=== PATIENT | male | born 1950 | race Caucasian/White ===

== ENCOUNTER → 2016-07-26 | Outpatient (CLI) | payer OTHER ==
[~2016-07-26] MED LIST: AMOX500C3 PO; ASCO500T16 PO; ATV/1 PO; B-CO1CAP5 PO; CHOL1000 PO; CIPR-255 PO; COEN1CAP17 PO; CRS10 PO; FLUT0.15 NAE; HYDR-3714 PO; MELATAB2 PO; MISCCAP80 PO; MULT-884 PO; OMEG120017 PO; OXYC-57 PO; PHEN-775 PO; PRIM50TA29 PO; PROP1TAB PO; PROP20TA66 PO; VITBC PO
== END | disposition home or self-care (01) ==
LOC: C.PATHSPEC 19:13
PROVIDERS: ATTEND Dermatology
DX: L91.8 Other hypertrophic disorders of the skin (principal)

== ENCOUNTER → 2016-08-04 | Outpatient (CLI) | payer OTHER ==
[2016-08-04 13:05] LABS: BLOOD UREA NITROGEN 17 mg/dl (7-18); BUN/CREATININE RATIO 19.6 (10-20); CALCIUM 9.1 mg/dl (8.5-10.1); CARBON DIOXIDE 25 mmol/L (21-32); CHLORIDE 105 mmol/L (98-107); CHOLESTEROL 145 mg/dl (0-200); CREATININE 0.85 mg/dl (0.60-1.40); GLUCOSE 96 mg/dl (70-99); POTASSIUM 4.4 mmol/L (3.5-5.1); SODIUM 139 mmol/L (136-145); TRIGLYCERIDES 47 mg/dl (0-150); VERY LOW DENSITY LIPOPROT CALC 9 mg/dl
[2016-08-04 13:09] LABS: CHOLESTEROL/HDL RATIO 2.8; HDL CHOLESTEROL 52 mg/dl; LDL CHOLESTEROL CALCULATED 84 mg/dl
== END | disposition home or self-care (01) ==
LOC: C.LABPVFM 10:06
PROVIDERS: ATTEND Nurse Practitioner
DX: E78.5 Hyperlipidemia, unspecified (principal); I10 Essential (primary) hypertension

== ENCOUNTER → 2016-08-10 | Outpatient (CLI) | payer OTHER ==
--- NOTE | 2016-08-10 11:05 | DIAGNOSTIC IMAGING REPORT ---
Ultrasound, aorta ULTRASOUND EXAM AAA SCREEN CLINICAL HISTORY: E78.5 Hyperlipidemia previous smoker 1 1/2 packs a day >20 result family history TECHNIQUE: Ultrasound COMPARISON STUDY: None FINDINGS: Minimal atherosclerotic change and ectasia. No evidence for aneurysm. Proximal iliac vasculature is unremarkable. IMPRESSION: Minimal/mild atherosclerotic change and ectasia. No evidence for aneurysm. Maximum diameter of the mid abdominal aorta is 2.7 cm Electronically signed by: Virgil Mayer M.D. 08/10/2016 11:04 AM Dictated Date/Time: 08/10/2016 11:03 AM
== END | disposition home or self-care (01) ==
LOC: C.ULTR 10:40
PROVIDERS: ATTEND Nurse Practitioner
DX: E78.5 Hyperlipidemia, unspecified (principal)

== ENCOUNTER 2016-10-07 05:26 | Emergency (ER) | payer OTHER ==
[~2016-10-07] VITALS: Ht 185.4 cm; Wt 94.1 kg
[~2016-10-07 05:26] MED LIST changes: -ASCO500T16 PO; -CHOL1000 PO; -CIPR-255 PO; -COEN1CAP17 PO; -FLUT0.15 NAE; -MELATAB2 PO; -OXYC-57 PO; -PHEN-775 PO; -PRIM50TA29 PO; -PROP1TAB PO
[2016-10-07 05:31] VITALS: TEMP 36.4; Ht 185.4 cm; Wt 94.1 kg
[2016-10-07] MEDS ORDERED: KETOROLAC TROMETHAMINE 30 MG/ML VIAL IV STA (05:48)
[2016-10-07 05:59] LABS: URINE APPEARANCE CLEAR (CLEAR); URINE BILIRUBIN NEG (NEG); URINE COLOR DK YELLOW; URINE NITRITE NEG (NEG); UROBILINOGEN NEG (NEG)
[2016-10-07 06:07] LABS: BASO % 0.3 %; BASO ABS # 0.01 K/uL (0-0.2); COMPLETE YES; EOS % 3.6 %; HEMATOCRIT 46.3 % (42-52); IG% 0.3 %; LYMPH % 23.1 %; LYMPH ABS # 0.91 K/uL (1.2-3.4); MEAN CELL VOLUME 86.7 fL (80-100); MEAN CORPUSCULAR HEMOGLOBIN 29.8 pg (25-34); MEAN CORPUSCULAR HGB CONC 34.3 g/dl (32-36); MEAN PLATELET VOLUME 9.2 fL (7.4-10.4); MONO % 7.1 %; NEUT % 65.6 %; PLATELET COUNT 234 K/uL (130-400); RED BLOOD COUNT 5.34 M/uL (4.7-6.1); WHITE BLOOD COUNT 3.94 K/uL (4.8-10.8)
[2016-10-07 06:13] LABS: MANUAL MICROSCOPIC REQUIRED? NO; REVIEW REQ? NO
[2016-10-07 06:19] LABS: BUN/CREATININE RATIO 24.4 (10-20); CALCIUM 8.7 mg/dl (8.5-10.1); CREATININE 0.89 mg/dl (0.60-1.40); POTASSIUM 4.5 mmol/L (3.5-5.1)
[2016-10-07] MEDS ORDERED: PROP1TAB PO (06:27)
[2016-10-07] MEDS ORDERED: CHOL1000 PO (06:31)
[2016-10-07] MEDS ORDERED: COEN1CAP17 PO (06:32)
[2016-10-07] MEDS ORDERED: PRIM50TA29 PO (06:34)
[2016-10-07] MEDS ORDERED: FLUT0.15 NAE (06:35)
[2016-10-07] MEDS ORDERED: MELATAB2 PO (06:37)
[2016-10-07] MEDS ORDERED: ASCO500T16 PO (06:38)
--- NOTE | 2016-10-07 06:54 | EMERGENCY ROOM VISIT NOTE ---
History Report prepared by Bruce: Jakob Kebede Under the Supervision of: Dr. Karoline Salazar D.O. First contact with patient: 05:40 Chief Complaint: FLANK PAIN Stated Complaint: LEFT SIDED PAIN History of Present Illness The patient is a 65 year old male who presents to the Emergency Room with complaints of constant left sided flank pain starting yesterday afternoon. He currently rates his discomfort as a 5/10 in severity. The patient states that he was doing renovations, and he started to get the pain which he has never had before. He originally thought that it was just musculature, though the pain woke him up this morning around 0300. The patient denies any fevers, chills, urinary symptoms, and diarrhea. He states that the pain is not worsened with deep inspiration. The patient has a past medical history of hypertension and hyperlipidemia. Source of History: patient Onset: yesterday afternoon Position: other (left flank) Symptom Intensity: 5/10 Timing: constant Associated Symptoms: No fevers, No chills, No diarrhea, No urinary symptoms Review of Systems See HPI for pertinent positives & negatives. A total of 10 systems reviewed and were otherwise negative. Past Medical & Surgical Medical Problems: (1) HLD (hyperlipidemia) (2) HTN (hypertension) Family History Patient reports no known family medical history. Social History Smoking Status: Former Smoker Marital Status: Housing Status: lives with family Current/Historical Medications Scheduled Ascorbic Acid (Ascorbic Acid), 500 MG PO DAILY B-Complex W/Biotin & Folic Aci (Super B-Complex), 1 CAP PO DAILY Cholecalciferol (Vitamin D3), Unknown Dose PO DAILY Coenzyme Q10 (Ubidecarenone) (Co Q 10), Unknown Dose PO DAILY Fluticasone Propionate (Nasal) (Flonase Allergy Relief), 1 SPRAY JAVED BID Lorazepam (Ativan), 1 MG PO UD Melatonin (Melatonin Maximum Strengt), 5 MG PO HS Multiple Vitamin (Multi Vitamin Daily), 1 TAB PO DAILY [place] 3 Fatty Acids-[place] 6 Fa ([place]-3 & [place]-6 Fish Oi), 1,000 MG PO DAILY Primidone (Mysoline), 100 MG PO AMPM Probiotic Product (Probiotic), CAP PO DAILY Propranolol (Inderal), 60 MG PO BID Rosuvastatin Calcium (Crestor), 10 MG PO DAILY Scheduled PRN Oxycodone/Acetaminophen 5MG/325MG (Percocet 5MG/325MG), 2 TABLETS PO Q4H PRN for Pain Allergies Coded Allergies: No Known Allergies (Unverified , 05/27/14) Physical Exam Vital Signs Date Time Temp Pulse Resp B/P (MAP) Pulse Ox O2 Delivery O2 Flow Rate FiO2 10/07/16 07:58 65 124/63 98 10/07/16 06:32 62 18 129/70 95 Room Air 10/07/16 05:31 36.4 62 19 162/81 97 Room Air Physical Exam HEENT: Head - normocephalic and atraumatic Pupils are equal, round, and reactive to light. Extraocular eye muscles are intact, and sclera are anicteric. Nose - moist nasal mucosa without discharge. Mouth - moist buccal mucosa. Oropharynx is nonerythematous and there is no tonsillar exudate or edema noted. Neck: Supple; no JVD, nuchal rigidity, cervical lymphadenopathy. Heart: Regular rate and rhythm. There is a normal S1 and S2 with no murmurs, clicks, or gallops appreciated. Lungs: Clear to auscultation bilaterally with no wheezes, rales, or rhonchi. Abdomen: Soft, completely nontender, nondistended, with good bowel sounds. There are no palpable pulsatile masses or hepatosplenomegaly. There is no guarding, rigidity, or rebound noted. The patient has no obvious skin lesions noted over the left flank. Extremities: No evidence of cyanosis, clubbing, or edema. There are easily palpable peripheral pulses. Skin: warm and dry with good turgor and no rashes. Medical Decision & Procedures ER Provider Diagnostic Interpretation: Radiology results as stated below per my review and the radiologist's interpretation: ABDOMEN AND PELVIS CT WITHOUT CONTRAST CT DOSE: 1230.07 mGy.cm HISTORY: eval for left sided stone TECHNIQUE: Multiaxial CT images of the abdomen and pelvis were performed without the use of intravenous and oral contrast according to the standard department stone protocol. A dose lowering technique was utilized adhering to the principles of ALARA. COMPARISON STUDY: None. FINDINGS: There are 4 subcentimeter nodules within the right lung base and 2 subcentimeter nodules within the left lung base. Dominant nodule within the left lung base on image 12 measures 6 mm. No suspicious lytic or blastic osseous lesions. A few small hypodense lesions within the liver with the largest in the right hepatic lobe measuring 12 mm. These are incompletely characterized on this noncontrast study but favor cysts. The spleen, adrenal glands, pancreas, and gallbladder are unremarkable. No renal calculi. An 8 mm stone within the left ureteropelvic junction resulting in moderate left hydronephrosis and mild left perinephric edema. Ectatic abdominal aorta measures up to 2.9 cm. No retroperitoneal lymphadenopathy. Bladder decompressed but appears unremarkable. Suboptimal evaluation for bowel pathology due to the lack of intravenous and oral contrast. However, there is no definite bowel wall thickening or obstruction. Colonic diverticulosis. Normal appendix. IMPRESSION: 1. An obstructing 8 mm stone within the left ureteropelvic junction resulting in moderate left hydronephrosis. 2. A few subcentimeter indeterminate pulmonary nodules within the lung bases with the largest in the left lower lobe measuring 6 mm. Please refer to the chart below for recommended follow-up. 3. Additional findings as described above. Please refer to below summary of Fleischner criteria recommendations for follow-up of incidental CT nodules (Joellen Steward, Guidelines for management of small pulmonary nodules detected on CT scans: A statement from the Fleischner Society, Radiology 237: [phone].) SOLID NODULES Solitary nodule size: <6 mm * Low risk patients: no follow-up needed * high risk patients: optional CT at 12 months Solitary nodule size: 6-8 mm * Low risk patients: follow-up at 6-12 months, then consider further follow-up at 18-24 months * high risk patients: initial follow-up CT at 6-12 months and then at 18-24 months if no change Solitary nodule size: >8 mm * either low or high risk patients - consider follow-up CT at 3 months, and/or CT-PET, and/or biopsy Multiple nodules size: <6 mm * Low risk patients: no routine follow-up * high risk patients: optional CT at 12 months Multiple nodules size: 6-8 mm * Low risk patients: follow-up at 3-6 months, then consider further follow-up at 18-24 months * high risk patients: follow-up at 3-6 months, then at 18-24 months if no change Multiple nodules size: >8 mm * Low risk patients: follow-up at 3-6 months, then consider further follow-up at 18-24 months * high risk patients: follow-up at 3-6 months, then at 18-24 months if no change Note: newly detected indeterminate nodule in persons 35 years of age or older. * Low risk patients: minimal or absent history of smoking and/or other known risk factors * high risk patients: history of smoking or of other known risk factors (e.g. first degree relative with lung cancer, or exposure to asbestos, radon, uranium) * if a nodule up to 8 mm is partly solid or is ground glass further follow-up is required after 24 months to exclude possible slow growing adenocarcinoma (DANA) SUBSOLID NODULES Solitary pure ground-glass nodule * nodule size <6 mm - no CT follow-up required * nodule size >=6 mm - follow-up CT at 6-12 months, then every 2 years until 5 years Solitary part-solid nodule * nodule size <6 mm - no CT follow-up required * nodule size >=6 mm - follow-up CT at 3-6 months. If unchanged, and solid component remains <6 mm, then annual follow-up for 5 years Multiple subsolid nodules * nodule size <6 mm - follow-up CT at 3-6 months, consider further follow-up at 2 and 4 years if stable * nodule size >=6 mm - follow-up CT at 3-6 months, subsequent management based on the most suspicious nodule(s) Electronically signed by: Aime Mcnally M.D. 10/07/2016 7:11 AM Dictated Date/Time: 10/07/2016 7:06 AM Laboratory Results 10/07/16 05:50 Red Blood Count 5.34, Mean Corpuscular Volume 86.7, Mean Corpuscular Hemoglobin 29.8, Mean Corpuscular Hemoglobin Concent 34.3, Mean Platelet Volume 9.2, Neutrophils (%) (Auto) 65.6, Lymphocytes (%) (Auto) 23.1, Monocytes (%) (Auto) 7.1, Eosinophils (%) (Auto) 3.6, Basophils (%) (Auto) 0.3, Neutrophils # (Auto) 2.59, Lymphocytes # (Auto) 0.91, Monocytes # (Auto) 0.28, Eosinophils # (Auto) 0.14, Basophils # (Auto) 0.01 10/07/16 05:50 Test 10/07/16 05:45 10/07/16 05:50 Urine Color DK YELLOW Urine Appearance CLEAR (CLEAR) Urine pH 5.0 (4.5-7.5) Urine Specific [place] 1.030 (1.000-1.030) Urine Protein NEG (NEG) Urine Glucose (UA) NEG (NEG) Urine Ketones 1+ (NEG) Urine Occult Blood NEG (NEG) Urine Nitrite NEG (NEG) Urine Bilirubin NEG (NEG) Urine Urobilinogen NEG (NEG) Urine Leukocyte Esterase NEG (NEG) White Blood Count 3.94 K/uL (4.8-10.8) Red Blood Count 5.34 M/uL (4.7-6.1) Hemoglobin 15.9 g/dL (14.0-18.0) Hematocrit 46.3 % (42-52) Mean Corpuscular Volume 86.7 fL (80-100) Mean Corpuscular Hemoglobin 29.8 pg (25-34) Mean Corpuscular Hemoglobin Concent 34.3 g/dl (32-36) Platelet Count 234 K/uL (130-400) Mean Platelet Volume 9.2 fL (7.4-10.4) Neutrophils (%) (Auto) 65.6 % Lymphocytes (%) (Auto) 23.1 % Monocytes (%) (Auto) 7.1 % Eosinophils (%) (Auto) 3.6 % Basophils (%) (Auto) 0.3 % Neutrophils # (Auto) 2.59 K/uL (1.4-6.5) Lymphocytes # (Auto) 0.91 K/uL (1.2-3.4) Monocytes # (Auto) 0.28 K/uL (0.11-0.59) Eosinophils # (Auto) 0.14 K/uL (0-0.5) Basophils # (Auto) 0.01 K/uL (0-0.2) RDW Standard Deviation 40.7 fL (36.4-46.3) RDW Coefficient of Variation 12.8 % (11.5-14.5) Immature Granulocyte % (Auto) 0.3 % Immature Granulocyte # (Auto) 0.01 K/uL (0.00-0.02) Anion Gap 4.0 mmol/L (3-11) Est Creatinine Clear Calc Drug Dose 91.0 ml/min Estimated GFR () 102.5 Estimated GFR (Non- 88.5 BUN/Creatinine Ratio 24.4 (10-20) Calcium Level 8.7 mg/dl (8.5-10.1) Total Bilirubin 0.4 mg/dl (0.2-1) Direct Bilirubin 0.1 mg/dl (0-0.2) Aspartate Amino Transf (AST/SGOT) 26 U/L (15-37) Alanine Aminotransferase (ALT/SGPT) 35 U/L (12-78) Alkaline Phosphatase 75 U/L (45-117) Total Protein 6.5 gm/dl (6.4-8.2) Albumin 3.9 gm/dl (3.4-5.0) Laboratory results per my review. Medications Administered Medications (Trade) Dose Ordered Sig/[place] Route Start Time Stop Time Status Last Admin Dose Admin Ketorolac Tromethamine (Toradol Inj) 30 mg NOW STAT IV 10/07/16 05:48 10/07/16 05:49 DC 10/07/16 05:55 30 MG Procedure Toradol IV ED Course 0540: Past medical records reviewed. The patient was evaluated in room A2. A complete history and physical exam was performed. An IV lock was initiated and labs were drawn as above. 0548: Toradol Inj 30mg IV. The patient was able to give a urine specimen which was positive for blood. He went for CT scan of the abdomen/pelvis to rule out a stone. 0729: I reevaluated the patient, and he was very comfortable after the Toradol. 0732: I discussed the patient's case with Dr. Pruitt, Urology, and he states that if the patient is comfortable enough, then he can go home. 0735: Upon reevaluation, the patient is feeling well. I discussed findings and results with him. He verbalized agreement of the treatment plan. He was discharged home. Medical Decision The patient is a 65 year old male who presents to the ED with left flank pain. Differential diagnosis includes kidney stone, shingles, flank strain, pyelonephritis, and diverticulitis. Lab results show: Urinalysis is negative for blood, positive for 1+ ketones, BUN 22, creatinine 0.8, glucose 103, LFTs are normal, white blood count of 3.9, and stable H&H. The patient presents to the emergency department with fairly severe left flank pain. His pain was relieved with Toradol. CT scan showed evidence of a large left-sided UPJ stone. I discussed the case with urology. They will see the patient in the office for follow-up and definitive care. The patient was given a prescription for Percocet to use for pain. He was instructed to return to the emergency department for intractable pain, vomiting or fever. Otherwise, he should follow-up with urology later today to make an appointment. [place] Drug Monitoring Program Search Results: patient reviewed within database, no issues identified Medication Reconcilliation Current Medication List: was personally reviewed by me Blood Pressure Screening Patient's blood pressure: Normal blood pressure Consults Time Called: 729 Consulting Physician: Dr. Pruitt, Urology Returned Call: 07 I discussed the patient's case with Dr. Pruitt, Urology, and he states that if the patient is comfortable enough, then he can go home. Impression Primary Impression: Obstruction of left ureteropelvic junction (UPJ) due to stone Scribe Attestation The scribe's documentation has been prepared under my direction and personally reviewed by me in its entirety. I confirm that the note above accurately reflects all work, treatment, procedures, and medical decision making performed by me. Departure Information Dispostion Home / Self-Care Prescriptions Oxycodone/Acetaminophen 5MG/325MG (PERCOCET 5MG/325MG) Tab 2 TABLETS PO Q4H Y for Pain, #20 TAB Prov: Karoline Salazar D.O. 10/07/16 Referrals Traci Arthur C.R.N.P (PCP) Forms HOME CARE DOCUMENTATION FORM, IMPORTANT VISIT INFORMATION, MOTRIN USE, SPECIAL NARCOTICS INSTRUCTIONS Patient Instructions Kidney Stones Expectant Therapy, [facility] Additional Instructions Rest. Take plenty of clear liquids Percocet - 1- 2 tab. every 4 hours for pain Return to the ER for worsening pain, vomiting, or fever. Follow up with Urology today Follow up with PCP about Pulmonary nodules
--- NOTE | 2016-10-07 07:12 | DIAGNOSTIC IMAGING REPORT ---
ABDOMEN AND PELVIS CT WITHOUT CONTRAST CT DOSE: 1230.07 mGy.cm HISTORY: eval for left sided stone TECHNIQUE: Multiaxial CT images of the abdomen and pelvis were performed without the use of intravenous and oral contrast according to the standard department stone protocol. A dose lowering technique was utilized adhering to the principles of ALARA. COMPARISON STUDY: None. FINDINGS: There are 4 subcentimeter nodules within the right lung base and 2 subcentimeter nodules within the left lung base. Dominant nodule within the left lung base on image 12 measures 6 mm. No suspicious lytic or blastic osseous lesions. A few small hypodense lesions within the liver with the largest in the right hepatic lobe measuring 12 mm. These are incompletely characterized on this noncontrast study but favor cysts. The spleen, adrenal glands, pancreas, and gallbladder are unremarkable. No renal calculi. An 8 mm stone within the left ureteropelvic junction resulting in moderate left hydronephrosis and mild left perinephric edema. Ectatic abdominal aorta measures up to 2.9 cm. No retroperitoneal lymphadenopathy. Bladder decompressed but appears unremarkable. Suboptimal evaluation for bowel pathology due to the lack of intravenous and oral contrast. However, there is no definite bowel wall thickening or obstruction. Colonic diverticulosis. Normal appendix. IMPRESSION: 1. An obstructing 8 mm stone within the left ureteropelvic junction resulting in moderate left hydronephrosis. 2. A few subcentimeter indeterminate pulmonary nodules within the lung bases with the largest in the left lower lobe measuring 6 mm. Please refer to the chart below for recommended follow-up. 3. Additional findings as described above. Please refer to below summary of Fleischner criteria recommendations for follow-up of incidental CT nodules (Joellen Steward, Guidelines for management of small pulmonary nodules detected on CT scans: A statement from the Fleischner Society, Radiology 237: [phone].) SOLID NODULES Solitary nodule size: <6 mm * Low risk patients: no follow-up needed * high risk patients: optional CT at 12 months Solitary nodule size: 6-8 mm * Low risk patients: follow-up at 6-12 months, then consider further follow-up at 18-24 months * high risk patients: initial follow-up CT at 6-12 months and then at 18-24 months if no change Solitary nodule size: >8 mm * either low or high risk patients - consider follow-up CT at 3 months, and/or CT-PET, and/or biopsy Multiple nodules size: <6 mm * Low risk patients: no routine follow-up * high risk patients: optional CT at 12 months Multiple nodules size: 6-8 mm * Low risk patients: follow-up at 3-6 months, then consider further follow-up at 18-24 months * high risk patients: follow-up at 3-6 months, then at 18-24 months if no change Multiple nodules size: >8 mm * Low risk patients: follow-up at 3-6 months, then consider further follow-up at 18-24 months * high risk patients: follow-up at 3-6 months, then at 18-24 months if no change Note: newly detected indeterminate nodule in persons 35 years of age or older. * Low risk patients: minimal or absent history of smoking and/or other known risk factors * high risk patients: history of smoking or of other known risk factors (e.g. first degree relative with lung cancer, or exposure to asbestos, radon, uranium) * if a nodule up to 8 mm is partly solid or is ground glass further follow-up is required after 24 months to exclude possible slow growing adenocarcinoma (DANA) SUBSOLID NODULES Solitary pure ground-glass nodule * nodule size <6 mm - no CT follow-up required * nodule size >=6 mm - follow-up CT at 6-12 months, then every 2 years until 5 years Solitary part-solid nodule * nodule size <6 mm - no CT follow-up required * nodule size >=6 mm - follow-up CT at 3-6 months. If unchanged, and solid component remains <6 mm, then annual follow-up for 5 years Multiple subsolid nodules * nodule size <6 mm - follow-up CT at 3-6 months, consider further follow-up at 2 and 4 years if stable * nodule size >=6 mm - follow-up CT at 3-6 months, subsequent management based on the most suspicious nodule(s) Electronically signed by: Aime Mcnally M.D. 10/07/2016 7:11 AM Dictated Date/Time: 10/07/2016 7:06 AM
[2016-10-07] MEDS ORDERED: OXYC-57 PO (07:44)
[2016-10-07 07:58] VITALS: BP 124/63; PULSE 65; O2SAT 98
[2016-10-11] MEDS ORDERED: OXYC-57 PO (10:26)
[2016-10-14] MEDS ORDERED: OXYC-57 PO (10:12)
[2016-10-31] MEDS ORDERED: OXYC-57 PO (14:13)
[2016-10-31] MEDS ORDERED: CIPR-255 PO (14:13)
[2016-10-31] MEDS ORDERED: PHEN-775 PO (14:13)
== END 2016-10-07 07:59 | disposition home or self-care (01) ==
LOC: C.EDB 05:27 → C.EDA 07:59
DX: N20.1 Calculus of ureter (principal); E78.5 Hyperlipidemia, unspecified; I11.0 Hypertensive heart disease with heart failure; N20.0 Calculus of kidney; Z87.891 Personal history of nicotine dependence

== ENCOUNTER → 2016-10-07 | Outpatient (CLI) | payer OTHER ==
--- NOTE | 2016-10-07 12:14 | DIAGNOSTIC IMAGING REPORT ---
KUB CLINICAL HISTORY: Left ureteral calculus. FINDINGS: 2 AP supine abdominal radiographs are correlated with abdominal CT performed the same day 10/07/2016. A 9 mm obstructing calculus in the left proximal ureter is unchanged from earlier today. This projects at the level of L2. An additional nonobstructing calculus projects over the left renal pelvis. No right renal calculi are identified. Pelvic phleboliths are observed. There is a nonobstructed abdominal bowel gas pattern. The skeletal structures appear osteopenic. Mild lumbosacral spondylosis is identified. IMPRESSION: 1. A 9 mm obstructing calculus in the left proximal ureter is unchanged from earlier today. 2. An additional calculus projects over the left renal pelvis. Electronically signed by: Zelalem Chen M.D. 10/07/2016 12:13 PM Dictated Date/Time: 10/07/2016 12:11 PM
== END | disposition home or self-care (01) ==
LOC: C.RAD 11:09
PROVIDERS: ATTEND Nurse Practitioner Family
DX: N20.0 Calculus of kidney (principal)

== ENCOUNTER → 2016-10-07 | Outpatient (CLI) | payer OTHER | END | disposition home or self-care (01) | LOC: C.LABSPEC 14:58 | PROVIDERS: ATTEND Nurse Practitioner Family | DX: N20.0 Calculus of kidney (principal) ==

== ENCOUNTER → 2016-10-10 | Outpatient (CLI) | payer OTHER ==
[~2016-10-10] MED LIST changes: -AMOX500C3 PO; +ASCO500T16 PO; +CHOL1000 PO; +CIPR-255 PO; +COEN1CAP17 PO; +FLUT0.15 NAE; -HYDR-3714 PO; +MELATAB2 PO; +OXYC-57 PO; +PHEN-775 PO; +PRIM50TA29 PO; +PROP1TAB PO; -PROP20TA66 PO; -VITBC PO
--- NOTE | 2016-10-10 12:39 | DIAGNOSTIC IMAGING REPORT ---
CHEST 2 VIEWS ROUTINE CLINICAL HISTORY: 66 years-old Male presenting with NEPHROLITHIASIS. TECHNIQUE: PA and lateral views of the chest were obtained. COMPARISON: None. FINDINGS: Cardiomediastinal silhouette normal. Previously noted nodules at the lung base on recent CT are not radiographically apparent. Lungs and pleural spaces clear. Osseous structures normal. Upper abdomen normal. IMPRESSION: 1. No acute cardiopulmonary disease. Electronically signed by: Latrell Rincon M.D. 10/10/2016 12:38 PM Dictated Date/Time: 10/10/2016 12:37 PM
== END | disposition home or self-care (01) ==
LOC: C.CPL 12:05
PROVIDERS: ATTEND Nurse Practitioner Family
DX: N20.0 Calculus of kidney (principal)

== ENCOUNTER → 2016-10-13 | Outpatient (CLI) | payer OTHER ==
[~2016-10-13] MED LIST changes: -CHOL1000 PO; -FLUT0.15 NAE
--- NOTE | 2016-10-13 16:24 | DIAGNOSTIC IMAGING REPORT ---
KUB HISTORY: NEPHROLITHIASIS COMPARISON: KUB 10/07/2016, CT abdomen and pelvis 10/07/2016. FINDINGS: The bowel gas pattern is non-obstructive. There is no organomegaly. The previously noted obstructing 9 mm calculus of the left ureterovesicular junction has slightly migrated approximately 1 cm caudally now just inferior to the left transverse process L2. Additional 3 mm left renal calculus is again seen. Vascular calcifications of the pelvis appear unchanged. No pneumoperitoneum or pneumatosis. No fracture. Moderate degenerative changes of the pelvis are noted. IMPRESSION: 1. There has only been minimal migration of the left ureterovesicular junction 9 mm stone from comparison. 2. Additional left-sided nephrolithiasis redemonstrated. Electronically signed by: Jaun Britt M.D. 10/13/2016 4:22 PM Dictated Date/Time: 10/13/2016 4:15 PM
== END | disposition home or self-care (01) ==
LOC: C.RAD 15:58
PROVIDERS: ATTEND Nurse Practitioner Family
DX: N20.0 Calculus of kidney (principal)

== ENCOUNTER → 2016-10-14 | Day surgery (SDC) | payer OTHER ==
[2016-10-11 10:33] VITALS: Ht 184.2 cm; Wt 90.9 kg
--- NOTE | 2016-10-12 10:03 | PAT Medication Instructions ---
Service Date Oct 12, 2016. Current Home Medication List Ascorbic Acid (Ascorbic Acid), 500 MG PO DAILY B-Complex W/Biotin & Folic Aci (Super B-Complex), 1 CAP PO DAILY Coenzyme Q10 (Ubidecarenone) (Co Q 10), Unknown Dose PO DAILY Lorazepam (Ativan), 1 MG PO UD Melatonin (Melatonin Maximum Strengt), 5 MG PO HS Multiple Vitamin (Multi Vitamin Daily), 1 TAB PO DAILY [place] 3 Fatty Acids-[place] 6 Fa ([place]-3 & [place]-6 Fish Oi), 1,000 MG PO DAILY Oxycodone/Acetaminophen 5MG/325MG (Percocet 5MG/325MG), 1-2 TABLETS PO Q4H PRN for Pain Primidone (Mysoline), 2 TABS PO BID Probiotic Product (Probiotic), 1 CAP PO DAILY Propranolol (Inderal), 60 MG PO BID Rosuvastatin Calcium (Crestor), 10 MG PO QPM Medication Instructions For Your Scheduled Surgery - Hold the following medications starting 10/13/16: Coenzyme Q10 (Ubidecarenone) (Co Q 10), Unknown Dose PO DAILY [place] 3 Fatty Acids-[place] 6 Fa ([place]-3 & [place]-6 Fish Oi), 1,000 MG PO DAILY - Hold the following medications the morning of surgery: Ascorbic Acid (Ascorbic Acid), 500 MG PO DAILY B-Complex W/Biotin & Folic Aci (Super B-Complex), 1 CAP PO DAILY Multiple Vitamin (Multi Vitamin Daily), 1 TAB PO DAILY - Take the following medications the morning of surgery with a sip of water: Probiotic Product (Probiotic), 1 CAP PO DAILY Oxycodone/Acetaminophen 5MG/325MG (Percocet 5MG/325MG), 1-2 TABLETS PO Q4H PRN for Pain (okay to take up to 4 hours prior to surgery if needed) Primidone (Mysoline), 2 TABS PO BID - Take the following medications as scheduled the night before surgery: Propranolol (Inderal), 60 MG PO BID Rosuvastatin Calcium (Crestor), 10 MG PO QPM Oxycodone/Acetaminophen 5MG/325MG (Percocet 5MG/325MG), 1-2 TABLETS PO Q4H PRN for Pain (if needed) Lorazepam (Ativan), 1 MG PO UD. Primidone (Mysoline), 2 TABS PO BID Melatonin (Melatonin Maximum Strengt), 5 MG PO HS If you have any questions please call us at [phone] or [phone] or [phone]
[~2016-10-14] VITALS: Ht 184.2 cm; Wt 90.9 kg
[~2016-10-14] MED LIST changes: +CIPROFLOXACIN 400MG / 200ML D5W ONE; +CIPROFLOXACIN 400MG / D5W IV SCH; +DEXAMETHASONE SOD INJ 4 MG/ML VIAL ONE; +FENTANYL CITRATE INJ 50 MCG/1 ML 2 ML VIAL ONE; +LACTATED RINGER'S 1000ML 1,000 ML IV SCH; +LIDOCAINE HCL 2% 2 ML VIAL (20MG/ML) ONE; +MIDAZOLAM HCL 1 MG/ML 2ML VIAL ONE; +ONDANSETRON INJ 2 MG/ML 2 ML VIAL ONE; +OXYCODONE/ACETAMINOPHEN 5-325 TAB ONE; +OXYCODONE/ACETAMINOPHEN 5-325 TAB PO PRN; +PROPOFOL IV EMULSION 10 MG/ML 20 ML VIAL IV ONE; +SCOPOLAMINE 1.5 MG TDSY TD ONE
--- NOTE | 2016-10-14 09:36 | History & Physical Bridge Note ---
H&P Re-Evaluation Bridge Note: I have examined the patient, reviewed the History & Physical and in the interval since the performance of the History & Physical I have noted the following changes of clinical significance: No changes noted
--- NOTE | 2016-10-14 10:11 | [facility] Operative Report ---
Operative Report Operative Date Oct 14, 2016. Pre-Operative Diagnosis LEFT URETERAL STONE Post-Operative Diagnosis NONE Procedure(s) Performed LEFT ESWL Surgeon HUSSAIN Human Services Program Specialist Surgeon(s) NONE Estimated Blood Loss NONE Findings LEFT UPJ STONE Specimens NONE Drains NONE Anesthesia GENERAL Complication(s) None Disposition Recovery Room / PACU Indications LEFT UPJ STONE Description of Procedure Patient was identified in the preoperative holding area, appropriate informed consent was reviewed and completed and the patient was transported to the operating suite. Upon arrival appropriate preoperative antibiotics were administered and general anesthesia induced. The patient was placed in supine position and the stone was localized under fluoroscopy. A total of [_2500__] shocks were delivered to the stone. There appeared to be good fragmentation of the stone. Details of this procedure can be found on the [facility] information sheet. At the conclusion of the case the patient was extubated and taken to the PACU in stable condition. There were no complications. I attest to the content of the Intraoperative Record and any orders documented therein. Any exceptions are noted below.
--- NOTE | 2016-10-14 10:13 | Discharge Instructions-SurgCtr ---
Discharge Instructions Date of Service Oct 14, 2016. Visit Reason for Visit: Stones Discharge Discharge Diagnosis / Problem: STONE Discharge Goals Goal(s): Therapeutic intervention Medications Stopped Medications Name(s): FISH OIL STOPPED LAST DOSE 2 DAYS AGO. Activity Recommendations Activity Limitations: resume your previous activity (TAKE IT EASY TODAY) Anesthesia . Post Anesthesia Instructions: If you have had General Anesthesia or IV Sedation: * Do not drive today. * Resume driving when surgeon permits. * Do not make important decisions or sign legal documents today. * Call surgeon for: 1. Temperature elevations greater than 101 degrees F. 2. Uncontrollable pain. 3. Excessive bleeding. 4. Persistent nausea and vomiting. 5. Medication intolerance (nausea, vomiting or rash). * For nausea and vomiting use only clear liquids such as: tea, soda, bouillon until nausea subsides, then gradually increase diet as tolerated. * If you have any concerns or questions, call your surgeon's office. If physician is unavailable and it is an emergency, call 911 or go to the nearest emergency room. . Instructions / Follow-Up Instructions / Follow-Up MEDICATIONS: Resume previous medications unless instructed otherwise by your surgeon. Resume pre-ESWL medication except for aspirin, coumadin or other blood thinners. __ Toradol 10 mg every 6 hours for initial pain. __ Lortab 5 mg 1-2 every 4 hours for pain. _X_ Percocet 5 mg 1-2 every 4 hours for pain. __ Macrodantin 50 mg x 3 a day. __ Flomax 1 tab daily one half (1/2) hour after supper. SPECIAL CARE INSTRUCTIONS: 1. Get KUB (x-ray) _X_ day before or day of office visit and bring x-ray to office __ get x-ray 2 days before and tell office you are getting x-rays when you call for the appointment. 2. Strain ALL urine. 3. Please call if you have a fever, chills, severe pain, or constant dribbling of urine. 4. Office phone number . FOLLOW UP VISIT: Please call the office to schedule a follow-up appointment at . Diet Recommendations Home Diet: resume previous diet Procedures Procedures Performed: LEFT ESWL Pending Studies Studies pending at discharge: no Medical Emergencies . Who to Call and When: Medical Emergencies: If at any time you feel your situation is an emergency, please call 911 immediately. . Non-Emergent Contact Non-Emergency issues call your: Urologist Call Non-Emergent contact if: temperature is above 101.5, your pain is not controlled . . "Provider Documentation" section prepared by Tyree Naranjo. . [place] Drug Monitoring Program Search Results: patient reviewed within database
--- NOTE | 2016-10-14 10:59 | Anesthesia Progress Nt - [facility] ---
Anesthesia Post Op Note Date & Time Oct 14, 2016 at 10:59 Vital Signs Pain Intensity: 0 Vital Signs Past 12 Hours Date Time Temp Pulse Resp B/P (MAP) Pulse Ox O2 Delivery O2 Flow Rate FiO2 10/14/16 10:41 36.3 54 12 141/75 98 Mask 6 10/14/16 08:41 36.5 61 20 143/83 (103) 98 Room Air Notes Mental Status: alert / awake / arousable, participated in evaluation Pt Amnestic to Procedure: Yes Nausea / Vomiting: adequately controlled Pain: adequately controlled Airway Patency, RR, SpO2: stable & adequate BP & HR: stable & adequate Hydration State: stable & adequate Anesthetic Complications: no major complications apparent
[2016-10-14 11:15] VITALS: TEMP 36.5
[2016-10-14 11:32] VITALS: BP 136/83; PULSE 51; O2SAT 99
== END | disposition home or self-care (01) ==
LOC: X.SURG 10-12 09:17
PROVIDERS: ATTEND Urology
DX: N20.0 Calculus of kidney (principal); N20.1 Calculus of ureter; N52.9 Male erectile dysfunction, unspecified; E78.5 Hyperlipidemia, unspecified; I10 Essential (primary) hypertension; Z85.820 Personal history of malignant melanoma of skin; Z79.899 Other long term (current) drug therapy; Z85.828 Personal history of other malignant neoplasm of skin

== ENCOUNTER → 2016-10-25 | Outpatient (CLI) | payer OTHER ==
[~2016-10-25] MED LIST changes: -CIPROFLOXACIN 400MG / 200ML D5W ONE; -CIPROFLOXACIN 400MG / D5W IV SCH; -DEXAMETHASONE SOD INJ 4 MG/ML VIAL ONE; -FENTANYL CITRATE INJ 50 MCG/1 ML 2 ML VIAL ONE; -LACTATED RINGER'S 1000ML 1,000 ML IV SCH; -LIDOCAINE HCL 2% 2 ML VIAL (20MG/ML) ONE; -MIDAZOLAM HCL 1 MG/ML 2ML VIAL ONE; -ONDANSETRON INJ 2 MG/ML 2 ML VIAL ONE; -OXYCODONE/ACETAMINOPHEN 5-325 TAB ONE; -OXYCODONE/ACETAMINOPHEN 5-325 TAB PO PRN; -PROPOFOL IV EMULSION 10 MG/ML 20 ML VIAL IV ONE; -SCOPOLAMINE 1.5 MG TDSY TD ONE
--- NOTE | 2016-10-25 10:02 | DIAGNOSTIC IMAGING REPORT ---
KUB CLINICAL HISTORY: N20.0 [id number] COMPARISON STUDY: 10/13/2016 FINDINGS: There is no pathologic bowel dilatation. There is a persistent 9 mm calculus at the level of the left ureteral pelvic junction. There is additional 3 mm left renal calculus. A calcification projected immediately medial to the right kidney was demonstrated to represent a vascular calcification on a prior CT scan. Multiple pelvic basin calcifications are likely vascular. IMPRESSION: 1. No change the position of the 9 mm proximal left ureteral calculus 2. There is an additional 3 mm left renal calculus 3. No evidence of pathologic bowel dilatation Electronically signed by: Franco Roy M.D. 10/25/2016 10:01 AM Dictated Date/Time: 10/25/2016 9:59 AM
== END | disposition home or self-care (01) ==
LOC: C.RAD 09:29
PROVIDERS: ATTEND Nurse Practitioner Family
DX: N20.0 Calculus of kidney (principal); N20.1 Calculus of ureter

== ENCOUNTER 2016-10-31 09:48 | Day surgery (SDC) | payer OTHER ==
[2016-10-27 10:44] VITALS: BMI 26.0
[~2016-10-31] VITALS: Ht 185.4 cm; Wt 90.9 kg
[~2016-10-31 09:48] MED LIST changes: +ATROPINE SULFATE 0.1 MG/ML 5ML SYR IV PRN; -CIPR-255 PO; +CIPROFLOXACIN / D5W 400 MG IV SCH; +EpHEDrine SULFATE INJ 50 MG/ML AMP IV PRN; +FENTANYL CITRATE INJ 50 MCG/1 ML 2 ML VIAL IV PRN; +LACTATED RINGER'S 1000ML 1,000 ML IV SCH; +ONDANSETRON INJ 2 MG/ML 2 ML VIAL IV PRN; -PHEN-775 PO
[2016-10-31 11:02] VITALS: BP 136/55; PULSE 58; TEMP 36.5; O2SAT 99; Ht 185.4 cm; Wt 90.9 kg
[2016-10-31] MEDS ORDERED: MIDAZOLAM HCL 1 MG/ML 2ML VIAL ONE (12:11)
[2016-10-31] MEDS ORDERED: ONDANSETRON INJ 2 MG/ML 2 ML VIAL ONE (12:11)
[2016-10-31] MEDS ORDERED: FENTANYL CITRATE INJ 50 MCG/1 ML 2 ML VIAL ONE (12:11)
[2016-10-31] MEDS ORDERED: LIDOCAINE HCL 2% 2 ML VIAL (20MG/ML) ONE (12:11)
[2016-10-31] MEDS ORDERED: DEXAMETHASONE SOD INJ 4 MG/ML VIAL ONE (12:11)
[2016-10-31] MEDS ORDERED: PROPOFOL IV EMULSION 10 MG/ML 20 ML VIAL IV ONE (12:11)
[2016-10-31] MEDS ORDERED: CONRAY 30% 150ML BOTTLE ONE (12:57)
[2016-10-31] MEDS ORDERED: OXYC-57 PO (14:13)
[2016-10-31] MEDS ORDERED: PHEN-775 PO (14:13)
[2016-10-31] MEDS ORDERED: CIPR-255 PO (14:13)
[2016-10-31] MEDS ORDERED: SODIUM CHLORIDE 0.9% 1000ML 1,000 ML IV SCH (14:17)
[2016-10-31] MEDS ORDERED: KETOROLAC TROMETHAMINE 15 MG/ML VIAL IV. STA (14:17)
--- NOTE | 2016-10-31 14:17 | Discharge Instructions ---
Discharge Instructions Date of Service Oct 31, 2016. Admission Reason for Admission: Stones Discharge Discharge Diagnosis / Problem: stones Discharge Goals Goal(s): Decrease discomfort, Improve function, Increase independence, Improve disease control, Prevent Disease Progression Activity Recommendations Activity Limitations: resume your previous activity Lifting Limitations: none Exercise/Sports Limitations: none May Resume Sexual Activity: when tolerated Shower/Bathe: no limitations Driving or Machine Use: resume 1 day after discharge . Instructions / Follow-Up Instructions / Follow-Up Please keep your previously scheduled follow up appointment. Discharge Diet Recommended Diet: Regular Diet Procedures Procedures Performed: Cystoscopy, Left Ureteroscopy, Laser Lithotripsy; Stent, Ureteral Dilation Pending Studies Studies pending at discharge: no Laboratory Results Lipid Panel Test 08/04/16 10:10 Range/Units Triglycerides Level 47 0-150 mg/dl Cholesterol Level 145 0-200 mg/dl HDL Cholesterol 52 mg/dl Cholesterol/HDL Ratio 2.8 LDL Cholesterol, Calculated 84 mg/dl Medical Emergencies . Who to Call and When: Medical Emergencies: If at any time you feel your situation is an emergency, please call 911 immediately. . Non-Emergent Contact Non-Emergency issues call your: Urologist Call Non-Emergent contact if: you have a fever, temperature is above 101.5, your pain is not controlled, your pain is worsening . . "Provider Documentation" section prepared by Juanito Gongora. . VTE Core Measure Inpt VTE Proph given/why not?: Treatment not indicated [place] Drug Monitoring Program Search Results: patient reviewed within database Drug Monitoring Findings: numerous rx's in the past several months
--- NOTE | 2016-10-31 14:29 | Anesthesiology Progress Note ---
Anesthesia Post Op Note Date & Time Oct 31, 2016 at 14:29 Vital Signs Pain Intensity: 0 Vital Signs Past 12 Hours Date Time Temp Pulse Resp B/P (MAP) Pulse Ox O2 Delivery O2 Flow Rate FiO2 10/31/16 14:25 76 16 158/81 98 Oxymask 10 10/31/16 14:15 36.3 75 16 146/80 99 Oxymask 10 10/31/16 11:02 36.5 58 16 136/55 (82) 99 Room Air Notes Mental Status: alert / awake / arousable, participated in evaluation Pt Amnestic to Procedure: Yes Nausea / Vomiting: adequately controlled Pain: adequately controlled Airway Patency, RR, SpO2: stable & adequate BP & HR: stable & adequate Hydration State: stable & adequate Anesthetic Complications: no major complications apparent
[2016-10-31] MEDS ORDERED: TAMSULOSIN HCL 0.4 MG CAP PO ONE (14:30)
[2016-10-31] MEDS ORDERED: OXYCODONE/ACETAMINOPHEN 5-325 TAB PO PRN ×2 (14:30)
--- NOTE | 2016-10-31 14:46 | [facility] Operative Report ---
Operative Report Operative Date Oct 31, 2016. Pre-Operative Diagnosis Left Ureteral and Renal Stones Post-Operative Diagnosis Left Ureteral and Renal Stones Procedure(s) Performed Cystoscopy, Left Ureteroscopy, Laser Lithotripsy; ([id number]) Stent, Ureteral Dilation Surgeon Dr. 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 General anesthesia was induced and ciprofloxacin administered. The patient was placed in dorsal lithotomy position where he was sterilely prepped and draped. I began the case by passing a 22 Mauritian cystoscope with 30 lens. He has no evidence of stricture disease. His prostate is relatively small in size was moderately high bladder neck. Full inspection of the bladder was carried out. No evidence of tumors or other abnormalities the bladder mucosa. Left ureteral orifice was easily identified in orthotopic position and was cannulated with a sensor wire and a 10 Mauritian double-lumen catheter. The wire was advanced to the kidney without difficulty followed by placement of a second wire through the 10 Mauritian double-lumen catheter. I left the 10 [place] double-lumen catheter to passively dilate the ureter for approximately 60 seconds. After withdrawing the 10 Mauritian double-lumen catheter, I passed a flexible ureteroscope over 1 wire while reserving the other as a safety wire. Renoscopy was then carried out, identifying no stones within the limited portion of the kidney. Fluoroscopic evaluation with the scope in the kidney confirmed that I was in the upper pole with the scope and then opacity clearly matching the stone previously seen on KUB was clearly visible within the lower pole. After confirming a clear upper pole, I performed a very careful exit ureteroscopy in approximately 6 cm below the UPJ I encountered a takeoff to the lower pole. I guided a wire into this as I was unable to drive the scope and without a wire. I attempted to pass the scope over the wire, but this failed. I withdrew the scope entirely and passed a balloon dilator over the wire. After positioning the balloon dilator over this area of narrowing, I inflated to 12 mmHg and allowed to rest in position for 120 seconds. Withdrew the balloon dilator and repassed the flexible ureteroscope into the lower pole without difficulty. Full inspection revealed numerous calyces with a large calculus seen. A 200 fiber was passed and laser lithotripsy commenced. Don't was treated its entirety in the pieces all teams safe for spontaneous passage. I then performed a repeat exit ureteroscopy confirming no stones within the lower pole or within the common ureter. After confirming the position of the lower pole wire, I placed a 6 Mauritian by 26cm double-J ureteral stent seeing a good curl in the kidney as well as the bladder. The bladder was decompressed, and the case concluded. The patient was extubated and taken to the PACU in stable condition. I attest to the content of the Intraoperative Record and any orders documented therein. Any exceptions are noted below.
[2016-10-31 14:55] VITALS: BP 158/78; PULSE 71; TEMP 36.6; O2SAT 97
[2016-10-31 15:25] VITALS: BP 161/78; PULSE 62; O2SAT 98
[2016-10-31 15:59] VITALS: BP 157/76; PULSE 62; O2SAT 99
== END 2016-10-31 16:35 | disposition home or self-care (01) ==
LOC: C.ACU 09:48
PROVIDERS: ATTEND Urology
DX: N20.2 Calculus of kidney with calculus of ureter (principal); G25.0 Essential tremor; N52.9 Male erectile dysfunction, unspecified; E78.5 Hyperlipidemia, unspecified; I10 Essential (primary) hypertension; G47.00 Insomnia, unspecified; Z79.899 Other long term (current) drug therapy

== ENCOUNTER → 2016-11-07 | Outpatient (CLI) | payer OTHER ==
[~2016-11-07] MED LIST changes: -ATROPINE SULFATE 0.1 MG/ML 5ML SYR IV PRN; +CIPR-255 PO; -CIPROFLOXACIN / D5W 400 MG IV SCH; -EpHEDrine SULFATE INJ 50 MG/ML AMP IV PRN; -FENTANYL CITRATE INJ 50 MCG/1 ML 2 ML VIAL IV PRN; -LACTATED RINGER'S 1000ML 1,000 ML IV SCH; -ONDANSETRON INJ 2 MG/ML 2 ML VIAL IV PRN; +PHEN-775 PO
--- NOTE | 2016-11-07 11:06 | DIAGNOSTIC IMAGING REPORT ---
KUB HISTORY: Nephrolithiasis. COMPARISON: KUB 10/25/2016. FINDINGS: The bowel gas pattern is unremarkable. There are no dilated loops of small bowel to suggest an obstruction. Interval placement of a left ureteral stent which appears be in good position. The dominant stone within the left ureteropelvic junction has been fragmented. Multiple small fragments are seen within the lower pole of the left kidney and a few punctate fragments remain at the left ureteropelvic junction. Stable pelvic calcifications which are consistent with phleboliths. The 3 mm calcification adjacent to the proximal stent was demonstrated to be a vascular calcification on the prior study. No definite right renal calculi identified. IMPRESSION: 1. The dominant stone within the left ureteropelvic junction seen on the prior study has been fragmented with multiple punctate stone fragments located within the lower pole of the left kidney and at the ureteropelvic junction. 2. The left ureteral stent is in good position. Electronically signed by: Aime Mcnally M.D. 11/07/2016 11:05 AM Dictated Date/Time: 11/07/2016 11:02 AM
== END | disposition home or self-care (01) ==
LOC: C.RAD 10:36
PROVIDERS: ATTEND Nurse Practitioner Family
DX: N20.0 Calculus of kidney (principal)

== ENCOUNTER → 2017-02-23 | Outpatient (CLI) | payer OTHER ==
[~2017-02-23] MED LIST changes: -PHEN-775 PO
== END | disposition home or self-care (01) ==
LOC: C.PATHSPEC 11:17
PROVIDERS: ATTEND Plastic Surgery
DX: L90.5 Scar conditions and fibrosis of skin (principal); D22.4 Melanocytic nevi of scalp and neck

== ENCOUNTER → 2017-02-24 | Outpatient (CLI) | payer OTHER ==
--- NOTE | 2017-02-24 12:31 | DIAGNOSTIC IMAGING REPORT ---
CT SCAN OF THE CHEST WITHOUT IV CONTRAST CLINICAL HISTORY: Pulmonary nodule follow-up. COMPARISON STUDY: Chest x-ray dated 10/10/2016. Abdominal CT dated 10/07/2016. TECHNIQUE: CT scan of the thorax was performed from the thoracic inlet to the upper abdomen. Images are reviewed in the axial, sagittal, and coronal planes. IV contrast was not administered for this examination as per the referring clinician. A dose lowering technique was utilized adhering to the principles of ALARA. CT DOSE: 456.54 mGy.cm FINDINGS: Thyroid: Imaged portions of the thyroid gland are normal in size and attenuation. Thoracic aorta: There is atherosclerotic calcification of the thoracic aorta, which is normal in caliber and demonstrates standard 3-vessel arch anatomy. Heart: The heart is top normal in size and without pericardial effusion. The coronary arteries are densely calcified. Lungs and pleural spaces: Mild emphysematous change is identified. There is no airspace consolidation or pleural effusion. The trachea and central airways are clear. There are scattered (less than 10) pulmonary nodules seen in the lower lungs. The largest nodules measure up to 7 mm seen in the right lower lobe on image #207 and in the left lower lobe on image #198. Additional nodules are seen in the right lower lobe on image #204, in the right middle lobe on image #175, in the lingula on image #160, and in the left lower lobe on images #159 and #199. Mediastinum: There is no mediastinal lymphadenopathy. 1.3 cm around water attenuation structure in the superior mediastinum on image #42 is of doubtful significance. Nina: Not well assessed without IV contrast. Axillae: There is no axillary lymphadenopathy. Upper abdomen: There is a tiny hiatal hernia. A 12 mm cyst is again seen in the right lobe liver. Additional subcentimeter hepatic hypodensities also likely represent cysts but are too small for definitive characterization. Skeletal structures: The skeletal structures are osteopenic. No lytic or blastic bony lesions are seen. IMPRESSION: 1. Emphysema. 2. There is no airspace consolidation or pleural effusion. 3. There are scattered (less than 10) pulmonary nodules measuring up to 7 mm above. These are pathologically indeterminant and continued follow-up as per the Fleischner criteria is recommended. The lower lobe nodules have not significantly changed from the 10/07/2016 examination. 4. Additional findings as above. Please refer to below summary of Fleischner criteria recommendations for follow-up of incidental CT nodules (Joellen Steward, Guidelines for management of small pulmonary nodules detected on CT scans: A statement from the Fleischner Society, Radiology 237: [phone].) SOLID NODULES Solitary nodule size: <6 mm * low risk patients: no follow-up needed * high risk patients: optional CT at 12 months Solitary nodule size: 6-8 mm * low risk patients: follow-up at 6-12 months, then consider further follow-up at 18-24 months * high risk patients: initial follow-up CT at 6-12 months and then at 18-24 months if no change Solitary nodule size: >8 mm * either low or high risk patients - consider follow-up CT at 3 months, and/or CT-PET, and/or biopsy Multiple nodules size: <6 mm * low risk patients: no routine follow-up * high risk patients: optional CT at 12 months Multiple nodules size: 6-8 mm * low risk patients: follow-up at 3-6 months, then consider further follow-up at 18-24 months * high risk patients: follow-up at 3-6 months, then at 18-24 months if no change Multiple nodules size: >8 mm * low risk patients: follow-up at 3-6 months, then consider further follow-up at 18-24 months * high risk patients: follow-up at 3-6 months, then at 18-24 months if no change Note: newly detected indeterminate nodule in persons 35 years of age or older. * low risk patients: minimal or absent history of smoking and/or other known risk factors * high risk patients: history of smoking or of other known risk factors (e.g. first degree relative with lung cancer, or exposure to asbestos, radon, uranium) * if a nodule up to 8 mm is partly solid or is ground glass further follow-up is required after 24 months to exclude possible slow growing adenocarcinoma (DANA) SUBSOLID NODULES Solitary pure ground-glass nodule * nodule size <6 mm - no CT follow-up required * nodule size >=6 mm - follow-up CT at 6-12 months, then every 2 years until 5 years Solitary part-solid nodule * nodule size <6 mm - no CT follow-up required * nodule size >=6 mm - follow-up CT at 3-6 months. If unchanged, and solid component remains <6 mm, then annual follow-up for 5 years Multiple subsolid nodules * nodule size <6 mm - follow-up CT at 3-6 months, consider further follow-up at 2 and 4 years if stable * nodule size >=6 mm - follow-up CT at 3-6 months, subsequent management based on the most suspicious nodule(s) Electronically signed by: Zelalem Chen M.D. 02/24/2017 12:30 PM Dictated Date/Time: 02/24/2017 12:22 PM
== END | disposition home or self-care (01) ==
LOC: C.CTS 12:05
PROVIDERS: ATTEND Nurse Practitioner
DX: R91.1 Solitary pulmonary nodule (principal); J43.9 Emphysema, unspecified

== ENCOUNTER → 2017-04-25 | Day surgery (SDC) | payer OTHER ==
[2017-04-10 08:22] VITALS: Ht 184.2 cm; Wt 93.2 kg
[~2017-04-25] VITALS: Ht 184.2 cm; Wt 93.2 kg
[~2017-04-25] MED LIST changes: +CHOL1000 PO; -CIPR-255 PO; +LIDOCAINE HCL 2% 2 ML VIAL (20MG/ML) ONE; -OXYC-57 PO; +PROPOFOL IV EMULSION 10 MG/ML 20 ML VIAL IV ONE; +SODIUM CHLORIDE 0.9% 500ML 500 ML IV ONE
--- NOTE | 2017-04-25 09:44 | Endo History and Physical ---
History & Physical Date of Service: Apr 25, 2017. Chief Complaint: History of colon polyps Referring Physician: Traci Arthur History of Present Illness 66 yo CM who presents for colonoscopy secondary to history of colon polyps. Past Medical History Cancer, High Cholesterol, Hypertension Past Surgical History Hx Cardiac Surgery: No Hx Internal Defibrillator: No Hx Pacemaker: No Hx Abdominal Surgery: No Hx of Implantable Prosthesis: No Hx Post-Op Nausea and Vomiting: Yes Hx Cancer Surgery: Yes (IN-SITU MELANOMA AND BCC EXCISION) Hx Thoracic Surgery: No Hx Orthopedic: Yes (RT SHOULDER) Hx Urinary Tract Surgery: Yes (LITHOTRIPSY, LASER LITHO) Family History None Social History Smoking Status: Former Smoker Hx Substance Use: No Hx Alcohol Use: Yes (OCCASIONAL) Allergies Coded Allergies: No Known Allergies (Unverified , 04/10/17) Current Medications Reported Home Medications Medications Dose Route/Sig Max Daily Dose Days Date Category Dose Instructions Vitamin D3 (Cholecalciferol) 1,000 Unit Tab 1 Tab PO DAILY 04/10/17 Reported Ascorbic Acid 500 Mg Tab 500 Mg PO DAILY 10/07/16 Reported Melatonin Maximum Strengt (Melatonin) 5 Mg Tab 5 Mg PO HS 10/07/16 Reported Mysoline (Primidone) 50 Mg Tab 3 Tabs PO BID 10/07/16 Reported Co Q 10 (Coenzyme Q10 (Ubidecarenone)) Unknown Strength Cap Unknown Dose PO BID 10/07/16 Reported Inderal (Propranolol HCl) 60 Mg Tab 60 Mg PO BID 10/07/16 Reported Super B-Complex (B-Complex W/Biotin & Folic Aci) 1 Cap Cap 1 Cap PO DAILY 05/26/14 Reported Probiotic (Probiotic Product) 1 Cap Cap 1 Cap PO DAILY 05/26/14 Reported Elsberry-3 & Elsberry-6 Fish Oi ([place]lsberry 3 Fatty Acids-Elsberry 6 Fa) 1 Cap Cap 1,000 Mg PO DAILY 05/26/14 Reported Multi Vitamin Daily (Multiple Vitamin) 1 Tab Tab 1 Tab PO DAILY 05/26/14 Reported Ativan (Lorazepam) 1 Mg Tab 1 Mg PO UD 05/26/14 Reported TAKE 0.5 MG NEEDED AT BEDTIME Crestor (Rosuvastatin Calcium) 10 Mg Tab 10 Mg PO QPM 05/26/14 Reported Vital Signs Weight (Kilograms): 93.18 Height (Feet): 6 Height (Inches): 0.5 Physical Exam General Appearance: WD/WN, no apparent distress Respiratory/Chest: Auscultation: breath sounds normal Cardiovascular: Heart Auscultation: RRR Abdomen: Bowel Sounds: normal Inspection & Palpation: soft, non-distended, no tenderness, guarding & rebound Assessment and Plan Assessment: 66 yo CM who presents for colonoscopy secondary to history of colon polyps. Plan: Proceed with colonoscopy.
--- NOTE | 2017-04-25 10:46 | Discharge Instructions ---
Endoscopy Patient Instructions Date / Procedure(s) Performed Apr 25, 2017. Colonoscopy Allergy Information Coded Allergies: No Known Allergies (Unverified , 04/25/17) Discharge Date / Findings Apr 25, 2017. Colon polyp Internal hemorrhoids Medication Instructions OK to resume all medications today as prescribed Reported Home Medications Medications Dose Route/Sig Max Daily Dose Days Date Category Dose Instructions Vitamin D3 (Cholecalciferol) 1,000 Unit Tab 1 Tab PO DAILY 04/10/17 Reported Ascorbic Acid 500 Mg Tab 500 Mg PO DAILY 10/07/16 Reported Melatonin Maximum Strengt (Melatonin) 5 Mg Tab 5 Mg PO HS 10/07/16 Reported Mysoline (Primidone) 50 Mg Tab 3 Tabs PO BID 10/07/16 Reported Co Q 10 (Coenzyme Q10 (Ubidecarenone)) Unknown Strength Cap Unknown Dose PO BID 10/07/16 Reported Inderal (Propranolol HCl) 60 Mg Tab 60 Mg PO BID 10/07/16 Reported Super B-Complex (B-Complex W/Biotin & Folic Aci) 1 Cap Cap 1 Cap PO DAILY 05/26/14 Reported Probiotic (Probiotic Product) 1 Cap Cap 1 Cap PO DAILY 05/26/14 Reported [place]-3 & [place]-6 Fish Oi ([place] 3 Fatty Acids-[place] 6 Fa) 1 Cap Cap 1,000 Mg PO DAILY 05/26/14 Reported Multi Vitamin Daily (Multiple Vitamin) 1 Tab Tab 1 Tab PO DAILY 05/26/14 Reported Ativan (Lorazepam) 1 Mg Tab 1 Mg PO UD 05/26/14 Reported TAKE 0.5 MG NEEDED AT BEDTIME Crestor (Rosuvastatin Calcium) 10 Mg Tab 10 Mg PO QPM 05/26/14 Reported Provider Instructions Activity Restrictions - No exercising or heavy lifting for 24 hours. - Do not drink alcohol the day of the procedure. - Do not drive a car or operate machinery until the day after the procedure. - Do not make any important decisions or sign important papers in 24 hours after the procedure. Following Day: - Return to full activity which may include returning to work/school. Diet Start your diet with liquids and light foods (jello, soup, juice, toast). Then eat your usual diet if not nauseated. Treatment For Common After Affects For mild abdominal pain, bloating, or excessive gas: - Rest - Eat lightly - Lie on right side Follow-Up Information Follow-up with Traci Arthur as scheduled Anesthesia Information What You Should Know You have had a procedure that required some medicine to reduce anxiety and discomfort. This treatment is called moderate sedation. After receiving the treatment, you may be sleepy, but you will be able to breathe on your own. The effects of the treatment may last for several hours. Follow these instructions along with Activity/Diet recommendations noted above: * Do NOT do anything where dizziness or clumsiness would be dangerous. * Rest quietly at home today, then you can be up and about tomorrow. * Have a responsible person stay with you the rest of today. * You may have had an I.V. today. If so, you may take the dressing off later today. Recommendations Call your doctor if: * Trouble breathing * Continuous vomiting for more than 24 hours * Temperature above 101 degrees * Severe abdominal pain or bloating * Pain not relieved by pain medicine ordered * There is increased drainage or redness from any incision * A large amount of rectal bleeding greater than 2-3 tablespoons. (If you had a polyp/s removed or have hemorrhoids, a small amount of blood - from the rectum is to be expected.) * You have any unanswered questions or concerns. IN THE EVENT OF A SERIOUS EMERGENCY, GO TO THE NEAREST EMERGENCY ROOM Your discharge instructions were prepared by provider Cory Davidson. Patient Instructions Signature Page Blas Breaux Patient (or Guardian) Signature/Date: I have read and understand the instructions given to me by my caregivers. Caregiver/RN/Doctor Signature/Date: The above-named patient and/or guardian has received patient instructions on this date. + Original Patient Signature Page (only) stays with chart. Please make copy for patient.
--- NOTE | 2017-04-25 10:59 | GI REPORT ---
Procedure Date: 04/25/2017 10:08 AM Procedure: Colonoscopy Indications: High risk colon cancer surveillance: Personal history of colonic polyps Medicines: Monitored Anesthesia Care Complications: No immediate complications. Estimated Blood Loss: Estimated blood loss: none. Procedure: Pre-Anesthesia Assessment: - Prior to the procedure, a History and Physical was performed, and patient medications and allergies were reviewed. The patient's tolerance of previous anesthesia was also reviewed. The risks and benefits of the procedure and the sedation options and risks were discussed with the patient. All questions were answered, and informed consent was obtained. Prior Anticoagulants: The patient has taken no previous anticoagulant or antiplatelet agents. ASA Grade Assessment: I - A normal, healthy patient. After reviewing the risks and benefits, the patient was deemed in satisfactory condition to undergo the procedure. After I obtained informed consent, the scope was passed under direct vision. Throughout the procedure, the patient's blood pressure, pulse, and oxygen saturations were monitored continuously. The On-site loaner was introduced through the anus and advanced to the terminal ileum. The colonoscopy was performed without difficulty. The patient tolerated the procedure well. The quality of the bowel preparation was good. The terminal ileum, ileocecal valve, appendiceal orifice, and rectum were photographed. Findings: The perianal and digital rectal examinations were normal. A 18 mm polyp was found in the ileocecal valve. The polyp was flat. The polyp was removed with a piecemeal technique using a hot snare. Resection and retrieval were complete. Non-bleeding internal hemorrhoids were found during retroflexion. The hemorrhoids were small. Impression: - One 18 mm polyp at the ileocecal valve, removed piecemeal using a hot snare. Resected and retrieved. - Non-bleeding internal hemorrhoids. Recommendation: - Resume previous diet. - Continue present medications. - Repeat colonoscopy for surveillance based on pathology results. - Return to primary care physician as previously scheduled. Cory Davidson, DO 04/25/2017 10:58:37 AM This report has been signed electronically. Note Initiated On: 04/25/2017 10:08 AM I attest to the content of the Intraoperative Record and orders documented therein, exceptions below
[2017-04-25 11:10] VITALS: BP 117/72; PULSE 67; O2SAT 97
--- NOTE | 2017-04-25 12:59 | Anesthesiology Progress Note ---
Anesthesia Post Op Note Date & Time Apr 25, 2017 at 12:59 Vital Signs Pain Intensity: 0 Vital Signs Past 12 Hours Date Time Temp Pulse Resp B/P (MAP) Pulse Ox O2 Delivery O2 Flow Rate FiO2 04/25/17 11:10 67 20 117/72 (87) 97 Room Air 04/25/17 10:54 67 20 114/52 (72) 98 Room Air 04/25/17 10:40 36.8 63 20 98/43 (61) 98 Room Air 04/25/17 09:49 36.8 65 20 151/71 (97) 98 Room Air Notes Mental Status: alert / awake / arousable, participated in evaluation Pt Amnestic to Procedure: Yes Nausea / Vomiting: adequately controlled Pain: adequately controlled Airway Patency, RR, SpO2: stable & adequate BP & HR: stable & adequate Hydration State: stable & adequate Anesthetic Complications: no major complications apparent
== END | disposition home or self-care (01) ==
LOC: C.GI 09:09
PROVIDERS: ATTEND Internal Medicine
DX: Z12.11 Encounter for screening for malignant neoplasm of colon (principal); D12.0 Benign neoplasm of cecum; K64.8 Other hemorrhoids; Z86.010 Personal history of colon polyps; I25.10 Atherosclerotic heart disease of native coronary artery without angina pectoris; I10 Essential (primary) hypertension; E78.00 Pure hypercholesterolemia, unspecified; Z85.820 Personal history of malignant melanoma of skin; Z98.890 Other specified postprocedural states; Z79.899 Other long term (current) drug therapy

== ENCOUNTER → 2017-05-24 | Outpatient (CLI) | payer OTHER ==
[~2017-05-24] MED LIST changes: -LIDOCAINE HCL 2% 2 ML VIAL (20MG/ML) ONE; -PROPOFOL IV EMULSION 10 MG/ML 20 ML VIAL IV ONE; -SODIUM CHLORIDE 0.9% 500ML 500 ML IV ONE
--- NOTE | 2017-05-24 11:45 | DIAGNOSTIC IMAGING REPORT ---
AP PELVIS, RIGHT HIP 2 VIEWS HISTORY: RIGHT HIP PAIN COMPARISON: None. FINDINGS: There is no fracture or dislocation. Soft tissues are unremarkable. Mild to moderate cartilage space narrowing within the right hip with subchondral sclerosis, small marginal osteophytes and subchondral cystic change. This is consistent with osteoarthritis. Mild vascular calcifications are noted. There is also mild osteoarthritis within the left hip. Mild osteoarthritis within the bilateral sacroiliac joints. The sacrum appears intact. There is mild osteitis pubis. IMPRESSION: 1. No acute fracture or dislocation within the pelvis or hips. 2. Mild to moderate right and mild left hip osteoarthritis. 3. Additional degenerative changes as described above. Electronically signed by: Aime Mcnally M.D. 05/24/2017 11:43 AM Dictated Date/Time: 05/24/2017 11:41 AM
== END | disposition home or self-care (01) ==
LOC: C.RADPV 11:21
PROVIDERS: ATTEND Nurse Practitioner
DX: M16.0 Bilateral primary osteoarthritis of hip (principal)

== ENCOUNTER 2020-07-04 04:03 | Observation (INO) ==
[2020-07-04] MEDS ORDERED: SODIUM CHLORIDE 0.9% 1000ML 500 ML IV ONE (04:34)
--- NOTE | 2020-07-04 04:40 | Emergency Department Note ---
Impression & Plan Acute lower GI bleeding ED Provider Note Name: JORGE CRABTREE Age: 69 Sex: M Arrives Via: Walk-In Informant: Patient, ED Provider: Nehemiah Smith MD Chief Complaint: Rectal Bleeding Impression: Acute Lower GI Bleeding Medical Decision Makin yr old male on no blood thinners nor ASA arrives 3 days post colonoscopy where 2 polyps removed. Patient notes feeling well and started to eat yesterday. This morning awoke and had large bloody bowel movement several times and came to ED. On arrival vitals stable and patient with soft, non-tender abdomen. Several bowel movements while here though vitals stable and patient looks OK. Initial HgB OK. Reviewed with Dr Engle of GI who advised starting GoLytely clean out now, and will plan to take to ENDO later this morning if remains stable. He does not feel GoLytely will effect ability for endoscopy this morning. Other labs looking ok. Hospitalist made aware. Patient and on board with plan. I did type/cross & hold for 2 units given the bleeding and patient aware. Denies previous blood transfusions. Patient with slowing of bleeding while here throughout early am. Vitals stable and he is comfortable, tolerating GoLytely. Reviewed at length with hospitalist who millie valuate chiara briggs. Prior Medical Record and Triage/Nursing Notes reviewed by Me Additional history obtained from chart Differentials:Diverticulosis, AVM, coagulopathy, colitis, inflammatory bowel disease, malignancy, Shayla-Crowder tear, esophagitis, peptic ulcer disease, va riceal bleed, gastritis, epistaxis, fissure, hemorrhoids, as well as other pathologies. Vital Signs: reviewed and remarkable for no significant abnormalities Interventions: saline lock, nss bolus Labs:Reviewed and remarkable for no significant abnormalities Cardiac/Tele Monitoring: Cardiac Monitoring: An Order was placed for continuous cardiac monitoring. The monitor shows a rate of 80 with a normal sinus rhythm. Consults:None Plan: Disposition:Hospitalization. Condition: Good History of Present Illness:69 yr old male arrives for evaluation of gi bleed. Patient with colonoscopy 3 days ago during which 2 polyps removed from ascending colon. Notes he started eating normally yesterday and was gardening throughout the day. This morning awoke with abdominal discomfort and feeling like he needed to have diarrhea. Went to bathroom where he noted large about of bloody stool. This occurred several more times before coming to ED for evaluation. Notes mild abdominal discomfort without pain. Denies chest pain, nausea, vomiting, sob, syncope, diaphoresis, leg swelling, nor other symptoms. Patient notes long history of "easy bruising" on hands due to "thin skin" but denies any other history of bleeding issues. No previous bleeding problems with previous Polyp removals nor with lumbar surgery years ago. Takes no blood thinners, nor aspirin/nsaids. Denies trauma/injury. States feeling well otherwise. No medications/interventions prior to arrival. Denies history of GERD/reflux. No history of bleeding issues in family that he is aware of. Nothing makes bleeding better/worse this morning. ROS: See above HPI for pertinent positives & negatives. A total of 10 systems reviewed and were otherwise negative. Past Medical History:HTN, HLD, Tremor, Neuropathy, Essential Tremor, Insomnia Past Surgical History:Lumbar surgery Family History:Father PUD, Mother DMII Social History:Retired, , ex smoker, occasional etoh, occasional m arijuana. Home Medications:See Below Allergies:NKDA Vitals:Blood Pressure: 148/79, Pulse 79, RR 18, T 36.1C, O2 95% on RA Physical Exam: GENERAL: Patient is anxious appearing and in minimal distress. EYES: No scleral icterus, unremarkable pupils. ENT: Mucous membranes moist, no nasal congestion. NECK: No masses appreciated, nomeningismus, trachea is midline. RESPIRATORY: No dyspnea. Clear to auscultation and equal bilaterally. No wheeze, no rhonchi. CARDIOVASCULAR: Regular rate and rhythm.No murmurs, rubs, gallops appreciated. GASTROINTESTINAL: Abdomen soft, non-tender, no peritonitis.Bowel sounds hyperactive.No masses appreciated. BACK: No midline tenderness, no CVA tenderness EXTREMITIES: Normal motion all extremities, no cyanosis, no edema. NEUROLOGIC: Alert and oriented, no acute motor or sensory deficits, no focal weakness, cranial nerves grossly intact. Essential tremor noted. SKIN: No rash, no jaundice, no diaphoresis. PSYCH: Appropriate GCS: 15 ED Course: Times/Reassessments: Stable, breathing comfortably, multiple bloody bms throughout morning, gradually slowing Nehemiah Smith MD Past Med/Surg History Medical History Aneurysm of infrarenal abdominal aorta MONITORED BY PCP (YEARLY EXAM) Essential tremor RT/LEFT HAND (REASON FOR PRIMIDONE) History of kidney stones History of SCC (squamous cell carcinoma) of skin Hyperlipidemia Hypertension Insomnia Pulmonary nodules Surgical History H/O lithotripsy H/O shoulder surgery RT H/O sinus surgery X 3 History of colonoscopy History of cystoscopy History of discectomy LUMBAR History of tonsillectomy and adenoidectomy History of tooth extraction Hx of melanoma excision ON FACE Hx of vasectomy Nausea and vomiting after administration of anesthetic agent [place] teeth removed Family History Brother Tremor Family history of diabetes mellitus Father Tremor Mother Family history of diabetes mellitus Other No family history of adverse response to anesthesia Denies family history of Ovarian cancer Prostate cancer Myocardial infarction Breast cancer Colorectal cancer Social History Smoking Status: Former smoker Age Started Using Tobacco: 17; Age Quit Using Tobacco: 52; packs per day: 1; Years Smoked: 35; Cigarettes Per Day: 20; Second Hand Exposure: Yes (IN THE PAST A CHILD); Do You Dip or Chew Tobacco: No; Hx Alcohol Use: Yes Alcohol type: beer Hx Substance Use: Yes Last Used Substance: Days (ago) Last Used Substance Other:: 14 Preferred Language: French Communication Ability: Effective Visual Impairment: No Limitations Hearing Ability: Normal Clinical Laboratory Technologist Required: No Beliefs That Will Affect Care: None marital status: Current Living Situation: Spouse current occupational status: retired Other Information That Helps Us Care for You: No Feels Safe at Home: Yes Safety Concerns: Feels Safe At This Time caffeine: Yes Dental Care, Regularly: Yes Physical Activity Frequency: Daily Seatbelt Use: always Sunscreen Use: Yes Assistive Devices: None Allergies Allergies Allergy/AdvReac Type Severity Reaction Status Date / Time No Known Allergies Allergy Verified 07/04/20 07:35 Home Meds Home Medications Medication Instructions Recorded Confirmed multivitamin 1 tab PO QAM 07/27/18 07/04/20 vitamin B complex 1 tab PO QAM 07/27/18 07/04/20 Lactobacillus 1 cap PO QAM cap 08/17/18 07/04/20 acidophilus-Bifidobac.animalis 31 billion cell capsule ascorbic acid (vitamin C) 500 mg 500 mg PO QAM cap 07/05/19 05/22/21 capsule coenzyme Q10 100 mg capsule 100 mg PO BID cap 08/17/18 07/04/20 melatonin 10 mg tablet 10 mg PO HS tab 08/17/18 07/04/20 omega-3 acid ethyl esters 1 gram 1 cap PO QAM cap 08/17/18 07/04/20 capsule cholecalciferol (vitamin D3) 25 mcg PO QAM 06/24/20 07/04/20 [Vitamin D3] Previous Rx's Medication Instructions Recorded sildenafil 100 mg tablet 50 mg PO UD PRN #10 tab 01/28/19 rosuvastatin 10 mg tablet 10 mg PO DAILY #90 tab 09/30/19 lorazepam 1 mg tablet 0.5 mg PO HS PRN #30 tab 05/28/20 gabapentin 300 mg capsule 600 mg PO BID 90 Days #360 cap 07/02/20 primidone 250 mg tablet 250 mg PO BID 90 Days #180 tab 07/02/20 propranolol 120 mg capsule,24 120 mg PO DAILY #90 cap 07/02/20 hr,extended release Results & Data (ED) Vital Signs Vital Signs - 24 hr 07/04/20 04:12 07/04/20 04:55 07/04/20 05:00 Temperature 36.1 C L Temperature Source Temporal Artery Scan Pulse Rate 79 78 75 Pulse Rate [Apical] Pulse Rate from SpO2 Sensor 78 75 Respiratory Rate 18 13 15 Respiratory Effort / Characteristics Non-Labored Spontaneous Respiratory Depth Normal Respiratory Pattern Regular Blood Pressure 148/79 H 148/79 H 146/87 H Blood Pressure [Left Arm] Blood Pressure Mean 102 102 106 Blood Pressure Mean [Left Arm] Blood Pressure Position Sitting Pulse Oximetry 95 95 95 Oxygen Delivery Method Room Air Sepsis Recent Fever Within 48 Hours No Sepsis New/Unexplained Change in Mental Status N/A Sepsis Action Taken by Nursing No Action Required 07/04/20 05:30 07/04/20 06:00 07/04/20 06:05 Temperature Temperature Source Pulse Rate 75 Pulse Rate [Apical] Pulse Rate from SpO2 Sensor 75 77 75 Respiratory Rate 14 Respiratory Effort / Characteristics Respiratory Depth Respiratory Pattern Blood Pressure 145/92 H 145/79 H Blood Pressure [Left Arm] Blood Pressure Mean 109 101 Blood Pressure Mean [Left Arm] Blood Pressure Position Pulse Oximetry 94 94 94 Oxygen Delivery Method Sepsis Recent Fever Within 48 Hours Sepsis New/Unexplained Change in Mental Status Sepsis Action Taken by Nursing 07/04/20 06:14 07/04/20 06:30 07/04/20 06:58 Temperature Temperature Source Pulse Rate 76 73 Pulse Rate [Apical] 75 Pulse Rate from SpO2 Sensor 77 73 Respiratory Rate 13 13 18 Respiratory Effort / Characteristics Respiratory Depth Respiratory Pattern Blood Pressure 169/86 H 134/89 Blood Pressure [Left Arm] 134/89 Blood Pressure Mean 113 104 Blood Pressure Mean [Left Arm] 104 Blood Pressure Position Pulse Oximetry 96 95 97 Oxygen Delivery Method Room Air Sepsis Recent Fever Within 48 Hours Sepsis New/Unexplained Change in Mental Status Sepsis Action Taken by Nursing 07/04/20 08:00 Temperature Temperature Source Pulse Rate Pulse Rate [Apical] 67 Pulse Rate from SpO2 Sensor Respiratory Rate 18 Respiratory Effort / Characteristics Respiratory Depth Respiratory Pattern Blood Pressure Blood Pressure [Left Arm] 142/91 H Blood Pressure Mean Blood Pressure Mean [Left Arm] 108 Blood Pressure Position Pulse Oximetry 97 Oxygen Delivery Method Room Air Sepsis Recent Fever Within 48 Hours Sepsis New/Unexplained Change in Mental Status Sepsis Action Taken by Nursing Laboratory Data Result diagrams: 07/04/20 16:02 07/04/20 04:50 Lab Results 07/04/20 07/04/20 07/04/20 Range/Units 04:50 04:50 04:50 WBC 4.59 L (4.8-10.8) K/uL RBC 5.14 (4.7-6.1) M/uL Hgb 15.9 (14.0-18.0) g/dL Hct 44.2 (42-52) % MCV 86.0 (80-100) fL MCH 30.9 (25-34) pg MCHC 36.0 (32-36) g/dL RDW Std Deviation 41.9 (36.4-46.3) fL RDW Coeff of Sima 13.2 (11.5-14.5) % Plt Count 244 (130-400) K/uL MPV 9.2 (7.4-10.4) fL Immature Gran % (Auto) 0.4 % Neut % (Auto) 68.5 % Lymph % (Auto) 17.6 % [place] % (Auto) 10.2 % Eos % (Auto) 3.1 % Baso % (Auto) 0.2 % Neut # (Auto) 3.14 (1.4-6.5) K/uL Lymph # (Auto) 0.81 L (1.2-3.4) K/uL [place] # (Auto) 0.47 (0.11-0.59) K/uL Eos # (Auto) 0.14 (0-0.5) K/uL Baso # (Auto) 0.01 (0-0.2) K/uL Immature Gran # (Auto) 0.02 (0.00-0.02) K/uL PT 10.2 (9.0-12.0) Seconds INR 1.0 (0.9-1.1) APTT 26.2 (21.0-31.0) Seconds PTT Ratio 1.0 Sodium (136-145) mmol/L Potassium (3.5-5.1) mmol/L Chloride (98-107) mmol/L Carbon Dioxide (21-32) mmol/L Anion Gap (3-11) BUN (7-18) mg/dl Creatinine (0.6-1.4) mg/dl Est Cr Clr Drug Dosing ml/min Est GFR ( Amer) ml/min Est GFR (Non-Af Amer) ml/min BUN/Creatinine Ratio (10-20) Glucose (70-99) mg/dl Calcium (8.5-10.1) mg/dl Magnesium (1.8-2.4) mg/dl Total Bilirubin (0.2-1) mg/dl Direct Bilirubin (0-0.2) mg/dl AST (15-37) U/L ALT (12-78) U/L Alkaline Phosphatase (45-117) U/L Total Protein (6.4-8.2) gm/dl Albumin (3.4-5.0) gm/dl Lipase (73-393) U/L COVID-19 Eval Order SARS-CoV-2 (PCR) (Negative) Blood Type O Positive Antibody Screen NEGATIVE Crossmatch See Detail 07/04/20 07/04/20 07/04/20 Range/Units 04:50 05:23 05:23 WBC (4.8-10.8) K/uL RBC (4.7-6.1) M/uL Hgb (14.0-18.0) g/dL Hct (42-52) % MCV (80-100) fL MCH (25-34) pg MCHC (32-36) g/dL RDW Std Deviation (36.4-46.3) fL RDW Coeff of Sima (11.5-14.5) % Plt Count (130-400) K/uL MPV (7.4-10.4) fL Immature Gran % (Auto) % Neut % (Auto) % Lymph % (Auto) % [place] % (Auto) % Eos % (Auto) % Baso % (Auto) % Neut # (Auto) (1.4-6.5) K/uL Lymph # (Auto) (1.2-3.4) K/uL [place] # (Auto) (0.11-0.59) K/uL Eos # (Auto) (0-0.5) K/uL Baso # (Auto) (0-0.2) K/uL Immature Gran # (Auto) (0.00-0.02) K/uL PT (9.0-12.0) Seconds INR (0.9-1.1) APTT (21.0-31.0) Seconds PTT Ratio Sodium 143 (136-145) mmol/L Potassium 4.1 (3.5-5.1) mmol/L Chloride 111 H (98-107) mmol/L Carbon Dioxide 26 (21-32) mmol/L Anion Gap 6.0 (3-11) BUN 22 H (7-18) mg/dl Creatinine 0.64 (0.6-1.4) mg/dl Est Cr Clr Drug Dosing 127.6 ml/min Est GFR ( Amer) 114.2 ml/min Est GFR (Non-Af Amer) 98.5 ml/min BUN/Creatinine Ratio 33.8 H (10-20) Glucose 101 H (70-99) mg/dl Calcium 8.1 L (8.5-10.1) mg/dl Magnesium 2.4 (1.8-2.4) mg/dl Total Bilirubin 0.3 (0.2-1) mg/dl Direct Bilirubin < 0.1 (0-0.2) mg/dl AST 25 (15-37) U/L ALT 31 (12-78) U/L Alkaline Phosphatase 110 (45-117) U/L Total Protein 6.5 (6.4-8.2) gm/dl Albumin 3.7 (3.4-5.0) gm/dl Lipase 187 (73-393) U/L COVID-19 Eval Order Covid19 at [facility] SARS-CoV-2 (PCR) NEGATIVE (Negative) Blood Type Antibody Screen Crossmatch 07/04/20 Range/Units 06:59 WBC (4.8-10.8) K/uL RBC (4.7-6.1) M/uL Hgb 15.1 (14.0-18.0) g/dL Hct (42-52) % MCV (80-100) fL MCH (25-34) pg MCHC (32-36) g/dL RDW Std Deviation (36.4-46.3) fL RDW Coeff of Sima (11.5-14.5) % Plt Count (130-400) K/uL MPV (7.4-10.4) fL Immature Gran % (Auto) % Neut % (Auto) % Lymph % (Auto) % [place] % (Auto) % Eos % (Auto) % Baso % (Auto) % Neut # (Auto) (1.4-6.5) K/uL Lymph # (Auto) (1.2-3.4) K/uL [place] # (Auto) (0.11-0.59) K/uL Eos # (Auto) (0-0.5) K/uL Baso # (Auto) (0-0.2) K/uL Immature Gran # (Auto) (0.00-0.02) K/uL PT (9.0-12.0) Seconds INR (0.9-1.1) APTT (21.0-31.0) Seconds PTT Ratio Sodium (136-145) mmol/L Potassium (3.5-5.1) mmol/L Chloride (98-107) mmol/L Carbon Dioxide (21-32) mmol/L Anion Gap (3-11) BUN (7-18) mg/dl Creatinine (0.6-1.4) mg/dl Est Cr Clr Drug Dosing ml/min Est GFR ( Amer) ml/min Est GFR (Non-Af Amer) ml/min BUN/Creatinine Ratio (10-20) Glucose (70-99) mg/dl Calcium (8.5-10.1) mg/dl Magnesium (1.8-2.4) mg/dl Total Bilirubin (0.2-1) mg/dl Direct Bilirubin (0-0.2) mg/dl AST (15-37) U/L ALT (12-78) U/L Alkaline Phosphatase (45-117) U/L Total Protein (6.4-8.2) gm/dl Albumin (3.4-5.0) gm/dl Lipase (73-393) U/L COVID-19 Eval Order SARS-CoV-2 (PCR) (Negative) Blood Type Antibody Screen Crossmatch Administered Medications Gabapentin (Gabapentin 300 Mg Cap) 600 mg PO BID JARON Stop: 08/03/20 10:37 Last Admin: 07/04/20 20:18 Dose: 600 mg Documented by: [id number] Admin: 07/04/20 11:45 Dose: 600 mg Documented by: [id number] Parenteral Electrolytes (Normosol-R) 1,000 mls @ 100 mls/hr IV .Q10H JARON Stop: 08/03/20 10:37 Last Admin: 07/04/20 22:54 Dose: 100 mls/hr Documented by: [id number] Infusion: 07/04/20 21:46 Dose: 100 mls/hr Documented by: [id number] Admin: 07/04/20 11:46 Dose: 100 mls/hr Documented by: [id number] Melatonin (Melatonin 3 Mg Tab) 9 mg PO HS JARON Stop: 08/03/20 20:59 Last Admin: 07/04/20 20:18 Dose: Not Given Documented by: [id number] Primidone (Primidone 250 Mg Tab) 250 mg PO BID JARON Stop: 08/03/20 10:37 Last Admin: 07/04/20 20:18 Dose: 250 mg Documented by: [id number] Admin: 07/04/20 11:46 Dose: 250 mg Documented by: [id number] Rosuvastatin Calcium (Rosuvastatin Calcium 10 Mg Tab) 10 mg PO HS JARON Stop: 08/03/20 20:59 Last Admin: 07/04/20 20:18 Dose: 10 mg Documented by: [id number] Discontinued Medications Sodium Chloride (Nss 1000ml) 500 mls @ 999 mls/hr IV .Q31M ONE Stop: 07/04/20 05:04 Last Infusion: 07/04/20 11:02 Dose: 0 mls/hr Documented by: [id number] Infusion: 07/04/20 06:12 Dose: 0 mls/hr Documented by: [id number] Admin: 07/04/20 04:55 Dose: 999 mls/hr Documented by: [id number] Sodium Chloride (Nss 1000ml) 1,000 mls @ 125 mls/hr IV .Q8H JARON Stop: 08/03/20 06:44 Last Infusion: 07/04/20 11:02 Dose: 0 mls/hr Documented by: [id number] Admin: 07/04/20 06:40 Dose: 125 mls/hr Documented by: [id number] Polyethylene Glycol/Electrolytes (Lavage Solution 4000ml) 1 dose PO UD STA Stop: 07/04/20 06:04 Last Admin: 07/04/20 06:40 Dose: 1 dose Documented by: [id number] Discharge Plan Visit Data Chief Complaint: Bleeding Stated Complaint: COLONOSCOPY ON MONDAY - BLEEDING ED Provider: Nehemiah Smith Discharge Problem: Acute lower GI bleeding Patient Disposition: Admitted As Inpatient Discharge Instructions Interventions: ED Discharge Assessment Last Done: 07/04/20 10:16
[2020-07-04 05:14] LABS: Basophils # (auto) 0.01 K/uL (0-0.2); Basophils % (auto) 0.2 %; Eosinophils # (auto) 0.14 K/uL (0-0.5); Eosinophils % (auto) 3.1 %; Hematocrit (blood only) 44.2 % (42-52); Hemoglobin 15.9 g/dL (14.0-18.0); Immature Granulocytes # (auto) 0.02 K/uL (0.00-0.02); Immature Granulocytes % (auto) 0.4 %; Lymphocytes # (auto) 0.81 K/uL (1.2-3.4); Lymphocytes % (auto) 17.6 %; Mean Corpuscular Hemoglobin 30.9 pg (25-34); Mean Platelet Volume 9.2 fL (7.4-10.4); Monocytes # (auto) 0.47 K/uL (0.11-0.59); Monocytes % (auto) 10.2 %; Neutrophils # (auto) 3.14 K/uL (1.4-6.5); Neutrophils % (auto) 68.5 %; Platelet Count 244 K/uL (130-400); RDW Coefficient of Variation 13.2 % (11.5-14.5); RDW Standard Deviation 41.9 fL (36.4-46.3); Red Blood Count 5.14 M/uL (4.7-6.1); White Blood Count 4.59 K/uL (4.8-10.8)
[2020-07-04 05:27] LABS: Partial Thromboplastin Time 26.2 Seconds (21.0-31.0); Prothrombin Time 10.2 Seconds (9.0-12.0)
[2020-07-04 05:41] LABS: Alanine Aminotransferase 31 U/L (12-78); Albumin Level 3.7 gm/dl (3.4-5.0); Aspartate Aminotransferase 25 U/L (15-37); BUN Creatinine Ratio 33.8 (10-20); Bilirubin Direct < 0.1 mg/dl (0-0.2); Blood Urea Nitrogen 22 mg/dl (7-18); Calcium 8.1 mg/dl (8.5-10.1); Carbon Dioxide 26 mmol/L (21-32); Chloride 111 mmol/L (98-107); Creatinine Clr Calc Pharmacy 127.6 ml/min; Est GFR (African American) 114.2 ml/min; Est GFR (Non-African American) 98.5 ml/min; Glucose 101 mg/dl (70-99); Lipase 187 U/L (73-393); Magnesium 2.4 mg/dl (1.8-2.4); Potassium 4.1 mmol/L (3.5-5.1); Sodium 143 mmol/L (136-145)
[2020-07-04 05:44] LABS: Alkaline Phosphatase 110 U/L (45-117); Bilirubin,Total 0.3 mg/dl (0.2-1); Total Protein 6.5 gm/dl (6.4-8.2)
[2020-07-04] MEDS ORDERED: LAVAGE SOLUTION 4000ML PO STA (06:03)
[2020-07-04] MEDS ORDERED: SODIUM CHLORIDE 0.9% 250 ML IV PRN (06:35)
[2020-07-04] MEDS ORDERED: SODIUM CHLORIDE 0.9% 1000ML 1,000 ML IV SCH (06:45)
--- NOTE | 2020-07-04 07:55 | History & Physical Report ---
Date of Service July 04, 2020 Assessment & Plan (1) Acute lower GI bleeding: Ongoing since with bloody BMs every 30 minutes. Despite this, hgb was stable at on arrival. - Trend hgb closely (Q4h) - Already has type and cross and consent for blood - Undergoing bowel prep for colonoscopy today - GI consulted in the ED - Maintain good IV access (asking the RN to place a second 18g IV) (2) HTN (hypertension): Presently BP is 140/90 in the ED. - Monitor BP - Hold propranolol for now (used also for his essential tremor) (3) Benign familial tremor: Worsening. Sees Dr. Martinez with recent referral to [facility]. - Continue primidone (4) HLD (hyperlipidemia): - Continue statin (5) DVT prophylaxis: SCDs - Holding heparin for GI bleeding History of Present Illness Primary Care Provider: LEYLA Lopez 69yo M w/ hx of essential tremor and HLD who presents with lower GI bleed. Patient underwent a colonoscopy on 07/01/2020 with removal of two polyps. He noted bright red blood per rectum this morning at 3:30am. He had been sleeping, and it awoke him from sleep with the sensation of diarrhea. He went to the bathroom, noted the large amount of blood (reports it colored the entire toilet bowl), and decided to go to the hospital. It has been ongoing since. Initially, he had a bloody BM every 30 minutes or so. Prior to starting his bowel prep, it had tapered to every 45 minutes or so, but now he is again having many bowel movements due to the prep. He otherwise has been fairly symptom-free. He notes some mild nausea when he first had the hematochezia, but no pain. No chest pain, no shortness of breath, no lightheadedness or dizziness. He reports mildly increased nausea due to the bowel prep, but otherwise feels well. Allergies Allergy/AdvReac Type Severity Reaction Status Date / Time No Known Allergies Allergy Verified 07/04/20 07:35 Home Medications Medication Instructions Recorded Confirmed Type multivitamin 1 tab PO QAM 07/27/18 07/04/20 History vitamin B complex 1 tab PO QAM 07/27/18 07/04/20 History Lactobacillus 1 cap PO QAM cap 08/17/18 07/04/20 History acidophilus-Bifidobac.animalis 31 billion cell capsule ascorbic acid (vitamin C) 500 mg 500 mg PO QAM cap 08/17/18 07/04/20 History capsule coenzyme Q10 100 mg capsule 100 mg PO BID cap 08/17/18 07/04/20 History melatonin 10 mg tablet 10 mg PO HS tab 08/17/18 07/04/20 History omega-3 acid ethyl esters 1 gram 1 cap PO QAM cap 08/17/18 07/04/20 History capsule sildenafil 100 mg tablet 50 mg PO UD PRN #10 tab 01/28/19 07/04/20 Rx rosuvastatin 10 mg tablet 10 mg PO DAILY #90 tab 09/30/19 07/04/20 Rx lorazepam 1 mg tablet 0.5 mg PO HS PRN #30 tab 05/28/20 07/04/20 Rx cholecalciferol (vitamin D3) 25 mcg PO QAM 06/24/20 07/04/20 History [Vitamin D3] gabapentin 300 mg capsule 600 mg PO BID 90 Days #360 cap 07/02/20 07/04/20 Rx primidone 250 mg tablet 250 mg PO BID 90 Days #180 tab 07/02/20 07/04/20 Rx propranolol 120 mg capsule,24 120 mg PO DAILY #90 cap 07/02/20 07/04/20 Rx hr,extended release Past Med/Surg History Medical History Aneurysm of infrarenal abdominal aorta MONITORED BY PCP (YEARLY EXAM) Essential tremor RT/LEFT HAND (REASON FOR PRIMIDONE) History of kidney stones History of SCC (squamous cell carcinoma) of skin Hyperlipidemia Hypertension Insomnia Pulmonary nodules Surgical History H/O lithotripsy H/O shoulder surgery RT H/O sinus surgery X 3 History of colonoscopy History of cystoscopy History of discectomy LUMBAR History of tonsillectomy and adenoidectomy History of tooth extraction Hx of melanoma excision ON FACE Hx of vasectomy Nausea and vomiting after administration of anesthetic agent [place] teeth removed Family History Brother Tremor Family history of diabetes mellitus Father Tremor Mother Family history of diabetes mellitus Other No family history of adverse response to anesthesia Denies family history of Ovarian cancer Prostate cancer Myocardial infarction Breast cancer Colorectal cancer Social History Smoking Status: Never smoker Age Started Using Tobacco: 17; Age Quit Using Tobacco: 52; packs per day: 1; Years Smoked: 35; Cigarettes Per Day: 20; Second Hand Exposure: Yes (IN THE PAST A CHILD); Hx Alcohol Use: Yes Alcohol type: beer, wine and hard liquor Hx Substance Use: Yes Last Used Substance: Days (ago) Last Used Substance Other:: USED LAST MONDAY (ADVISED) Preferred Language: Greek Visual Impairment: No Limitations Hearing Ability: Normal Needle Setter Required: No Beliefs That Will Affect Care: None marital status: Current Living Situation: Spouse current occupational status: retired Feels Safe at Home: Yes caffeine: Yes Dental Care, Regularly: Yes Physical Activity Frequency: Daily Seatbelt Use: always Sunscreen Use: Yes Assistive Devices: Glasses Review of Systems Review of Systems: All systems reviewed & are unremarkable except as noted in HPI & below Physical Exam Constitutional: WD/WN, vitals as above Eyes: EOM intact bilaterally; no conjunctival abnormality ENMT: external ear and nose normal, oropharynx normal Neck: trachea midline, no thyromegaly normal visual inspection Respiratory: normal respiratory effort, lungs clear to auscultation no respiratory distress Cardiovascular: RRR, no murmur, no edema Gastrointestinal (Abdomen): Inspection/Auscultation: abdomen normal to inspection; abdomen not distended Musculoskeletal: no cyanosis or clubbing, extremities motor strength 5/5 Skin: no rashes, warm and dry Neurologic: moves all extremities and awake Psychiatric: Orientation: alert, oriented to person and cooperative Results & Data Results & Data ([facility]) Vital Signs (Past 12 Hours) Vital Signs Temp Pulse Pulse Resp BP BP Pulse Ox 07/04/20 06:58 75 18 134/89 97 07/04/20 06:30 73 13 134/89 95 07/04/20 06:14 76 13 169/86 H 96 07/04/20 06:05 75 14 145/79 H 94 07/04/20 06:00 94 07/04/20 05:30 145/92 H 94 07/04/20 05:00 75 15 146/87 H 95 07/04/20 04:55 78 13 148/79 H 95 07/04/20 04:12 36.1 C L 79 18 148/79 H 95 PG Care Time/CCT Total # of Minutes Spent Total Time Spent with Patient: Total time spent is greater than 50% in coordination of care (as documented) at patient's floor/unit and/or counseling patient: Coding Level of Care Code 55712 Initial Inpt Care Lvl 3 Diagnoses Acute lower GI bleeding K92.2 HTN (hypertension) I10 Benign familial tremor G25.0 HLD (hyperlipidemia) E78.5 DVT prophylaxis Z29.9
[2020-07-04] MEDS ORDERED: MoRPHine SULFATE 2 MG/ML CARP IV PRN (10:38)
[2020-07-04] MEDS ORDERED: ONDANSETRON INJ 2 MG/ML 2 ML VIAL IV PRN (10:38)
[2020-07-04] MEDS ORDERED: ACETAMINOPHEN 325 MG TAB PO PRN (10:38)
[2020-07-04] MEDS ORDERED: LORazepam 1 MG TAB PO PRN (10:47)
[2020-07-04 11:18] LABS: Hematocrit (blood only) 39.1 % (42-52)
[2020-07-04] MEDS: GABAPENTIN 300 MG CAP PO SCH ×2 (11:45→20:18)
[2020-07-04] MEDS: NORMOSOL-R 1,000 ML IV SCH ×2 (11:46→22:54)
[2020-07-04] MEDS: PRIMIDONE 250 MG TAB PO SCH ×2 (11:46→20:18)
--- NOTE | 2020-07-04 13:15 | Anesthesiology Consultation ---
Date of Service July 04, 2020 Assessment & Plan (1) Encounter for pre-operative examination: Chart Review Chart Review: Acceptable Risk for Surgery and Patient NOT seen in Pre Admission Testing Consults Requested none History Surgery Operation Date: 07/04/20 14:45 Proposed Procedures p Colonoscopy Dr. Kadie Engle MD Height/Weight Height: 6 ft Weight: 96.6 kg Allergies Allergy/AdvReac Type Severity Reaction Status Date / Time No Known Allergies Allergy Verified 07/04/20 07:35 Medications Home Medications Medication Instructions Recorded Confirmed Last Taken multivitamin 1 tab PO QAM 07/27/18 07/04/20 07/03/20 vitamin B complex 1 tab PO QAM 07/27/18 07/04/20 07/03/20 Lactobacillus 1 cap PO QAM cap 08/17/18 07/04/20 07/03/20 acidophilus-Bifidobac.animalis 31 billion cell capsule ascorbic acid (vitamin C) 500 mg 500 mg PO QAM cap 08/17/18 07/04/20 07/03/20 capsule coenzyme Q10 100 mg capsule 100 mg PO BID cap 08/17/18 07/04/20 07/03/20 melatonin 10 mg tablet 10 mg PO HS tab 08/17/18 07/04/20 07/03/20 omega-3 acid ethyl esters 1 gram 1 cap PO QAM cap 08/17/18 07/04/20 07/03/20 capsule sildenafil 100 mg tablet 50 mg PO UD PRN #10 tab 01/28/19 07/04/20 Unknown rosuvastatin 10 mg tablet 10 mg PO DAILY #90 tab 09/30/19 07/04/20 07/03/20 lorazepam 1 mg tablet 0.5 mg PO HS PRN #30 tab 05/28/20 07/04/20 Unknown cholecalciferol (vitamin D3) 25 mcg PO QAM 06/24/20 07/04/20 07/03/20 [Vitamin D3] gabapentin 300 mg capsule 600 mg PO BID 90 Days #360 cap 07/02/20 07/04/20 07/03/20 primidone 250 mg tablet 250 mg PO BID 90 Days #180 tab 07/02/20 07/04/20 07/03/20 propranolol 120 mg capsule,24 120 mg PO DAILY #90 cap 07/02/20 07/04/20 07/03/20 hr,extended release Active Medications Generic Name Dose Route Start Last Admin Trade Name Carri PRN Reason Stop Dose Admin Gabapentin 600 mg 07/04/20 10:38 07/04/20 11:45 Gabapentin 300 Mg Cap PO 08/03/20 10:37 600 mg BID JARON Administration Parenteral Electrolytes 1,000 mls @ 100 mls/hr 07/04/20 10:38 07/04/20 11:46 Normosol-R IV 08/03/20 10:37 100 mls/hr .Q10H JARON Administration Primidone 250 mg 07/04/20 10:38 07/04/20 11:46 Primidone 250 Mg Tab PO 08/03/20 10:37 250 mg BID JARON Administration Past Medical History Medical History Aneurysm of infrarenal abdominal aorta MONITORED BY PCP (YEARLY EXAM) Essential tremor RT/LEFT HAND (REASON FOR PRIMIDONE) History of kidney stones History of SCC (squamous cell carcinoma) of skin Hyperlipidemia Hypertension Insomnia Pulmonary nodules Past Family History Family History Brother Tremor Family history of diabetes mellitus Father Tremor Mother Family history of diabetes mellitus Other No family history of adverse response to anesthesia Denies family history of Ovarian cancer Prostate cancer Myocardial infarction Breast cancer Colorectal cancer Past Surgical History Surgical History H/O lithotripsy H/O shoulder surgery RT H/O sinus surgery X 3 History of colonoscopy History of cystoscopy History of discectomy LUMBAR History of tonsillectomy and adenoidectomy History of tooth extraction Hx of melanoma excision ON FACE Hx of vasectomy Nausea and vomiting after administration of anesthetic agent [place] teeth removed Social History Smoking Status: Former smoker tobacco type: cigarettes Smoking cigarettes per day: 20 Do You Dip or Chew Tobacco: No Hx Alcohol Use: Yes Alcohol type: beer alcohol intake frequency: a few times a month Hx Substance Use: Yes substance use type: marijuana Last Used Substance: Days (ago) Last Used Substance Other:: 14 Physical Exam Vital Signs Last Vital Signs Temp 36.6 C 07/04/20 10:39 Pulse 71 07/04/20 12:20 Resp 16 07/04/20 12:20 BP 143/79 H 07/04/20 12:20 Pulse Ox 99 07/04/20 10:39 Testing Laboratory Results 07/04/20 11:07 07/04/20 04:50 PT 10.2 Seconds (9.0-12.0) 07/04/20 04:50 INR 1.0 (0.9-1.1) 07/04/20 04:50 APTT 26.2 Seconds (21.0-31.0) 07/04/20 04:50 Blood Type O Positive 07/04/20 04:50 Antibody Screen NEGATIVE 07/04/20 04:50
--- NOTE | 2020-07-04 13:34 | Gastrointestinal Consultation ---
Date of Consultation July 04, 2020 Assessment & Plan (1) Acute lower GI bleeding: possible bleeding from polypectomy site vs. AVM or other etiology. he has completed golytely prep this morning. recs: --colonoscopy today NPO supportive care insert two large bore IVs Thank you fro allowing me to participate in the care of this patient History of Present Illness Attending Physician: Misael Blas MD 69 yo male here with hematochezia. He underwent colonoscopy on 07/01/20 with two polyps removed by Dr. Davidson, ascending and cecum using hot snare. Noticed hematochezia this morning and it woke him up from sleep, hgb has dropped two units. labs reviwed, VSS. Allergies Allergy/AdvReac Type Severity Reaction Status Date / Time No Known Allergies Allergy Verified 07/04/20 07:35 Home Medications Medication Instructions Recorded Confirmed Type multivitamin 1 tab PO QAM 07/27/18 07/04/20 History vitamin B complex 1 tab PO QAM 07/27/18 07/04/20 History Lactobacillus 1 cap PO QAM cap 08/17/18 07/04/20 History acidophilus-Bifidobac.animalis 31 billion cell capsule ascorbic acid (vitamin C) 500 mg 500 mg PO QAM cap 08/17/18 07/04/20 History capsule coenzyme Q10 100 mg capsule 100 mg PO BID cap 08/17/18 07/04/20 History melatonin 10 mg tablet 10 mg PO HS tab 08/17/18 07/04/20 History omega-3 acid ethyl esters 1 gram 1 cap PO QAM cap 08/17/18 07/04/20 History capsule sildenafil 100 mg tablet 50 mg PO UD PRN #10 tab 01/28/19 07/04/20 Rx rosuvastatin 10 mg tablet 10 mg PO DAILY #90 tab 09/30/19 07/04/20 Rx lorazepam 1 mg tablet 0.5 mg PO HS PRN #30 tab 05/28/20 07/04/20 Rx cholecalciferol (vitamin D3) 25 mcg PO QAM 06/24/20 07/04/20 History [Vitamin D3] gabapentin 300 mg capsule 600 mg PO BID 90 Days #360 cap 07/02/20 07/04/20 Rx primidone 250 mg tablet 250 mg PO BID 90 Days #180 tab 07/02/20 07/04/20 Rx propranolol 120 mg capsule,24 120 mg PO DAILY #90 cap 07/02/20 07/04/20 Rx hr,extended release Patient History Medical History Aneurysm of infrarenal abdominal aorta MONITORED BY PCP (YEARLY EXAM) Essential tremor RT/LEFT HAND (REASON FOR PRIMIDONE) History of kidney stones History of SCC (squamous cell carcinoma) of skin Hyperlipidemia Hypertension Insomnia Pulmonary nodules Surgical History H/O lithotripsy H/O shoulder surgery RT H/O sinus surgery X 3 History of colonoscopy History of cystoscopy History of discectomy LUMBAR History of tonsillectomy and adenoidectomy History of tooth extraction Hx of melanoma excision ON FACE Hx of vasectomy Nausea and vomiting after administration of anesthetic agent [place] teeth removed Family History Brother Tremor Family history of diabetes mellitus Father Tremor Mother Family history of diabetes mellitus Other No family history of adverse response to anesthesia Denies family history of Ovarian cancer Prostate cancer Myocardial infarction Breast cancer Colorectal cancer Social History Smoking Status: Former smoker Age Started Using Tobacco: 17; Age Quit Using Tobacco: 52; packs per day: 1; Years Smoked: 35; Cigarettes Per Day: 20; Second Hand Exposure: Yes (IN THE PAST A CHILD); Do You Dip or Chew Tobacco: No; Hx Alcohol Use: Yes Alcohol type: beer Hx Substance Use: Yes Last Used Substance: Days (ago) Last Used Substance Other:: 14 Preferred Language: German Communication Ability: Effective Visual Impairment: No Limitations Hearing Ability: Normal Peel Oven Tender Required: No Beliefs That Will Affect Care: None marital status: Current Living Situation: Spouse current occupational status: retired Other Information That Helps Us Care for You: No Feels Safe at Home: Yes Safety Concerns: Feels Safe At This Time caffeine: Yes Dental Care, Regularly: Yes Physical Activity Frequency: Daily Seatbelt Use: always Sunscreen Use: Yes Assistive Devices: None Review of Systems Constitutional: no fever, no chills and no weight loss Eyes: as per Subjective / HPI Ear, Nose, Mouth, Throat: as per Subjective / HPI Respiratory: no dyspnea and no dyspnea on exertion Cardiovascular: no chest pain and no palpitations Gastrointestinal: as per Subjective / HPI Musculoskeletal: no joint pain and no swelling Integumentary: no rash and no lesions Neurologic: no numbness and no paresthesia Psychiatric: no depression and no anxiety Endocrine: no fatigue Hematologic / Lymphatic: no easy bleeding and no easy bruising Physical Exam Constitutional: WD/WN, vitals as above Eyes: EOM intact bilaterally Neck: normal visual inspection Respiratory: normal respiratory effort, lungs clear to auscultation Cardiovascular: RRR, no murmur, no edema Gastrointestinal (Abdomen): Inspection/Auscultation: abdomen normal to inspection; abdomen not distended Percussion/Palpation: abdomen soft; abdomen nontender and no hepatosplenomegaly Musculoskeletal: Extremities: no cyanosis Gait: normal gait Skin: no rashes, warm and dry Neurologic: moves all extremities Psychiatric: A+Ox3, euthymic affect Results & Data ([facility]) Vital Signs (Past 12 Hours) Vital Signs Temp Pulse Pulse Resp BP BP Pulse Ox 07/04/20 12:20 71 16 143/79 H 07/04/20 11:05 76 07/04/20 10:39 36.6 C 69 18 168/81 H 99 07/04/20 10:00 74 18 138/78 97 07/04/20 08:00 67 18 142/91 H 97 07/04/20 06:58 75 18 134/89 97 07/04/20 06:30 73 13 134/89 95 07/04/20 06:14 76 13 169/86 H 96 07/04/20 06:05 75 14 145/79 H 94 07/04/20 06:00 94 07/04/20 05:30 145/92 H 94 07/04/20 05:00 75 15 146/87 H 95 07/04/20 04:55 78 13 148/79 H 95 07/04/20 04:12 36.1 C L 79 18 148/79 H 95 PG Care Time/CCT Total # of Minutes Spent Total Time Spent with Patient: Total time spent is greater than 50% in coordination of care (as documented) at patient's floor/unit and/or counseling patient: Coding Level of Care Code 61023 Initial Inpt Care Lvl 3 Diagnoses Acute lower GI bleeding K92.2
[2020-07-04] MEDS ORDERED: LIDOCAINE 2% 2 ML VIAL/AMP(20MG/ML) INFIL ONE (14:43)
[2020-07-04] MEDS ORDERED: PROPOFOL IV EMULSION 10 MG/ML 20 ML VIAL IV ONE ×2 (14:43→15:08)
--- NOTE | 2020-07-04 15:35 | Anesthesiology Progress Note ---
Date of Service July 04, 2020 Anesthesia Post Procedure Vital Signs Vital Signs: Temp Pulse Pulse Resp BP BP Pulse Ox 07/04/20 12:20 71 16 143/79 H 07/04/20 11:05 76 07/04/20 10:39 36.6 C 69 18 168/81 H 99 07/04/20 10:00 74 18 138/78 97 07/04/20 08:00 67 18 142/91 H 97 07/04/20 06:58 75 18 134/89 97 07/04/20 06:30 73 13 134/89 95 07/04/20 06:14 76 13 169/86 H 96 07/04/20 06:05 75 14 145/79 H 94 07/04/20 06:00 94 07/04/20 05:30 145/92 H 94 07/04/20 05:00 75 15 146/87 H 95 07/04/20 04:55 78 13 148/79 H 95 07/04/20 04:12 36.1 C L 79 18 148/79 H 95 Transfer of Care Handoff Completed per policy Notes Mental Status: alert / awake / arousable and participated in evaluation Nausea / Vomiting: adequately controlled Pain: adequately controlled Airway Patency, RR, SpO2: stable & adequate BP & HR: stable & adequate Hydration State: stable & adequate Anesthetic Complications: no major complications apparent and Pt Satisfied with anesthetic care
--- NOTE | 2020-07-04 15:35 | GI REPORT ---
Patient Name: Blas Breaux Procedure Date: 07/04/2020 2:49 PM Date of : 1950 Admit Type: Inpatient Age: 69 Gender: Male Attending MD: Dominic Engle MD Procedure: Colonoscopy Providers: Dominic Engle MD Referring MD: Misael Blas Md Indications: Hematochezia Medicines: Monitored Anesthesia Care Complications: No immediate complications. Estimated blood loss: None. Estimated Blood Loss: Estimated blood loss: none. Procedure: Pre-Anesthesia Assessment: - Prior Anticoagulants: The patient has taken no previous anticoagulant or antiplatelet agents. - After reviewing the risks and benefits, the patient was deemed in satisfactory condition to undergo the procedure. - ASA Grade Assessment: II - A patient with mild systemic disease. After I obtained informed consent, the scope was passed under direct vision. Throughout the procedure, the patient's blood pressure, pulse, and oxygen saturations were monitored continuously. The Colonoscope was introduced through the anus and advanced to the cecum, identified by appendiceal orifice and ileocecal valve. The colonoscopy was performed without difficulty. The patient tolerated the procedure well. The quality of the bowel preparation was poor. Findings: A single (solitary) ulcer was found in the cecum at the polypectomy site. No bleeding was present. Stigmata of recent bleeding were present, in particular a visible vessel. For hemostasis, three hemostatic clips were successfully placed. There was no bleeding at the end of the procedure. A single (solitary) ulcer was found in the ascending colon at site of polypectomy. No bleeding was present. Stigmata of recent bleeding were present. For hemostasis, one hemostatic clip was successfully placed. There was no bleeding at the end of the procedure. Multiple small and large-mouthed diverticula were found in the sigmoid colon and descending colon. Non-bleeding internal hemorrhoids were found. The hemorrhoids were small. Impression: - Preparation of the colon was poor. - A single (solitary) ulcer in the cecum. Clips were placed. - A single (solitary) ulcer in the ascending colon. Clip was placed. - Diverticulosis in the sigmoid colon and in the descending colon. - Non-bleeding internal hemorrhoids. - No specimens collected. Recommendation: - [facility]. - Advance diet as tolerated today. Dominic Engle MD 07/04/2020 3:35:27 PM This report has been signed electronically. Note Initiated On: 07/04/2020 2:49 PM Number of Addenda: 0 I attest to the content of the Intraoperative Record and orders documented therein, exceptions below {[id number]}
--- NOTE | 2020-07-04 15:42 | Procedure Note ---
Procedure Note Date of Service July 04, 2020 GI brief procedure note colonoscopy findings: visible blood vessels at both polypectomy sites, likely cause of bleeding. clips applied for hemostasis. recs: diet as tolerated supportive care monitor overnight, if stable tomorrow can discharge Dominic Engle MD Gastroenterology Coding
[2020-07-04 16:11] LABS: Hematocrit (blood only) 34.7 % (42-52); Mean Corpuscular Hemoglobin 30.7 pg (25-34); Mean Corpuscular Hgb Conc 34.6 g/dL (32-36); Mean Corpuscular Volume 88.7 fL (80-100); Platelet Count 198 K/uL (130-400); RDW Coefficient of Variation 13.4 % (11.5-14.5); RDW Standard Deviation 43.8 fL (36.4-46.3); Red Blood Count 3.91 M/uL (4.7-6.1); White Blood Count 4.61 K/uL (4.8-10.8)
[2020-07-04] MEDS ORDERED: MELATONIN 3 MG TAB PO SCH (21:00)
[2020-07-04] MEDS ORDERED: ROSUVASTATIN CALCIUM 10 MG TAB PO SCH (21:00)
[2020-07-05 06:48] LABS: Hemoglobin 11.3 g/dL (14.0-18.0); Mean Corpuscular Hgb Conc 35.3 g/dL (32-36); Mean Corpuscular Volume 87.9 fL (80-100); Mean Platelet Volume 8.9 fL (7.4-10.4); Platelet Count 169 K/uL (130-400); RDW Coefficient of Variation 13.5 % (11.5-14.5); RDW Standard Deviation 43.5 fL (36.4-46.3); Red Blood Count 3.64 M/uL (4.7-6.1); White Blood Count 3.07 K/uL (4.8-10.8)
[2020-07-05 07:20] LABS: BUN Creatinine Ratio 15.6 (10-20); Calcium 7.6 mg/dl (8.5-10.1); Creatinine Clr Calc Pharmacy 158.2 ml/min; Est GFR (African American) 129.6 ml/min; Est GFR (Non-African American) 111.8 ml/min; Magnesium 2.1 mg/dl (1.8-2.4); Phosphorus 1.9 mg/dl (2.5-4.9); Potassium 3.7 mmol/L (3.5-5.1)
[2020-07-05] MEDS ORDERED: IRON SUCROSE 300 MG in SODIUM CHLORIDE 0.9% 250 ML IV STA (07:35)
[2020-07-05] MEDS: NORMOSOL-R 1,000 ML IV SCH (07:59)
[2020-07-05] MEDS: GABAPENTIN 300 MG CAP PO SCH (08:26)
[2020-07-05] MEDS: PRIMIDONE 250 MG TAB PO SCH (08:26)
[2020-07-05] MEDS ORDERED: POT PHOSPHATE MONOBASIC W/ SOD TAB PO SCH (09:00)
--- NOTE | 2020-07-05 17:48 | Discharge Summary ---
Date of Service July 05, 2020 Admission HPI Per Admitting Provider 69yo M w/ hx of essential tremor and HLD who presents with lower GI bleed. Patient underwent a colonoscopy on 07/01/2020 with removal of two polyps. He noted bright red blood per rectum this morning at 3:30am. He had been sleeping, and it awoke him from sleep with the sensation of diarrhea. He went to the bathroom, noted the large amount of blood (reports it colored the entire toilet bowl), and decided to go to the hospital. It has been ongoing since. Initially, he had a bloody BM every 30 minutes or so. Prior to starting his bowel prep, it had tapered to every 45 minutes or so, but now he is again having many bowel movements due to the prep. He otherwise has been fairly symptom-free. He notes some mild nausea when he first had the hematochezia, but no pain. No chest pain, no shortness of breath, no lightheadedness or dizziness. He reports mildly increased nausea due to the bowel prep, but otherwise feels well. Principal Diagnosis Colonic bleed from prior polypectomy sites Discharge Exam Constitutional WD/WN, vitals as above Eyes EOM intact bilaterally; no conjunctival abnormality ENMT external ear and nose normal, oropharynx normal Neck trachea midline, no thyromegaly normal visual inspection Respiratory normal respiratory effort, lungs clear to auscultation no respiratory distress Cardiovascular RRR, no murmur, no edema Gastrointestinal (Abdomen) Inspection/Auscultation: abdomen normal to inspection; abdomen not distended Musculoskeletal no cyanosis or clubbing, extremities motor strength 5/5 Skin no rashes, warm and dry Neurologic moves all extremities and awake Psychiatric Orientation: alert, oriented to person and cooperative Discharge Data Allergies Allergy/AdvReac Type Severity Reaction Status Date / Time No Known Allergies Allergy Verified 07/04/20 07:35 Consultations 07/04/20 06:04 Consult Gastroenterology Stat ED Decision to Admit Stat 07/04/20 10:38 Consult Gastroenterology Routine Procedures Performed Operation Date: 07/04/20 14:45 Actual Procedures p Colonoscopy - Dominic Engle MD Hospital Course (1) Acute lower GI bleeding: Ongoing since with bloody BMs every 30 minutes. Despite this, hgb was stable at on arrival. - Trended hgb -> Down to 11.3 by discharge. - Colonoscopy with Dr. Engle on 07/04 showed bleeding at both polypectomy sites. Both sites controlled with surgical clips. - Given one dose of IV iron to help replete lost supplies from bleeding. - By discharge, he felt well and wanted to go home. GI approved and he was discharged. No particular GI follow up needed if no return of bleeding. (2) HTN (hypertension): Presently BP is 140/90 in the ED. - Monitor BP (3) Benign familial tremor: Worsening. Sees Dr. Martinez with recent referral to [facility]. - Continue primidone (4) HLD (hyperlipidemia): - Continue statin (5) DVT prophylaxis: SCDs - Holding heparin for GI bleeding Total Time Total Time Spent Total Time Spent (In Minutes): 35 Discharge Plan Discharge Items Patient Disposition: Home - Self-Care Reason For Visit: LOWER GI BLEED Discharge Diagnosis: Bleeding from two sites in the colon Activity: Resume your previous activity Non-emergency contact: Primary Care Provider Call non-emergency contact if: your symptoms worsen Follow-up/Referrals: Traci Arthur CRNP [Primary Care Provider] - Diet: Heart Healthy Addtl Attending Provider Instructions: You were admitted to the hospital with bleeding from the colon at the sites from your polyp removals from your prior colonoscopy. Dr. Engle was able to clip both sites and stop the bleeding. Your hemoglobin (a marker of the number of red blood cells in your blood) dr opped, but not enough that a blood transfusion is warranted. We did give you IV iron to help get your red blood cells built back up by your bone marrow. Dr. Engle felt you were safe and ready to leave the hospital, so we are discharging you today! Please see your PCP in the next week or two to be sure you are doing well. Please eat foods rich in iron for the next few weeks to help your bone marrow rebuild your red blood cells. If you see further bleeding, please contact your PCP right away or return to the hospital. Pending Studies at Discharge: No Stand-Alone Forms: [employer], Smoking Cessation Medications and DC Order Prescriptions: Continued rosuvastatin 10 mg tablet 10 mg PO DAILY Qty: 90 RF: 3 lorazepam 1 mg tablet 0.5 mg PO HS PRN (Reason: insomnia) Qty: 30 RF: 1 ascorbic acid (vitamin C) 500 mg capsule 500 mg PO QAM RF: 0 coenzyme Q10 100 mg capsule 100 mg PO BID RF: 0 Lacto.acidophilus-Bif.animalis 31 billion cell capsule 1 cap PO QAM RF: 0 melatonin 10 mg tablet 10 mg PO HS RF: 0 omega-3 acid ethyl esters 1 gram capsule 1 cap PO QAM RF: 0 propranolol 120 mg capsule,extended release 24 hr 120 mg PO DAILY Qty: 90 RF: 0 primidone 250 mg tablet 250 mg PO BID 90 Days Qty: 180 RF: 0 gabapentin 300 mg capsule 600 mg PO BID 90 Days Qty: 360 RF: 0 multivitamin [Multiple Vitamins] tablet 1 tab PO QAM RF: 0 vitamin B complex [B Complex-Vitamin B12] tablet 1 tab PO QAM RF: 0 sildenafil 100 mg tablet 50 mg PO UD PRN (Reason: sexual activity) Qty: 10 RF: 3 cholecalciferol (vitamin D3) [Vitamin D3] 25 mcg (1,000 unit) Tablet 25 mcg PO QAM RF: 0 Discharge Orders: Discharge Order (Routine); Ordered 07/05/20 Ordered By: Misael Blas Admission Data Admit Date/Time: 07/04/20 08:22 Attending Provider: Misael Blas Admit Provider: Misael Blas Primary Care Provider: Traci Arthur Other Providers: Dominic Engle ; Issac Garcia Other Interventions: Discharge Summary Assessment (RN) Last Done: 07/05/20 10:08 Coding Level of Care Code D/C Day Management >30 mins Diagnoses Acute lower GI bleeding K92.2 HTN (hypertension) I10 Benign familial tremor G25.0 HLD (hyperlipidemia) E78.5 DVT prophylaxis Z29.9
== END 2020-07-05 10:40 | disposition home or self-care (01) ==
LOC: ED 04:03 → INTOOBSV 08:22 → 2S 08:22